=== PATIENT | female | born 1945 | race Caucasian/White ===

== ENCOUNTER 2023-09-01 07:30 | Outpatient (CLI) | payer MEDICARE, SELFPAY | END 2023-09-01 07:31 | disposition home or self-care (01) | LOC: NFLDREF 09-09 12:05 | PROVIDERS: PCP Internal Medicine; Referring Provider Internal Medicine; Visit Provider Internal Medicine | DX: E78.5 Hyperlipidemia, unspecified (principal); I10 Essential (primary) hypertension; E03.9 Hypothyroidism, unspecified | CPT/HCPCS: 80048; 80061; 84443 ==

== ENCOUNTER 2023-09-06 13:43 | Outpatient (CLI) | payer MEDICARE, SELFPAY | END 2023-09-06 13:44 | disposition home or self-care (01) | PROVIDERS: PCP Internal Medicine; Visit Provider Internal Medicine | DX: E78.5 Hyperlipidemia, unspecified (principal); E03.9 Hypothyroidism, unspecified; I10 Essential (primary) hypertension; M81.0 Age-related osteoporosis without current pathological fracture; D47.2 Monoclonal gammopathy | CPT/HCPCS: 82306; 84165; 86334 ==

== ENCOUNTER 2023-09-13 14:53 | Outpatient (CLI) | payer MEDICARE, SELFPAY ==
--- NOTE | 2023-09-13 15:00 | MM_ITS ---
Patient: EDER ANDERSON Facility:?[facility] Patient ID:?[id number] Site Patient ID:?[id number] Site :?[id number] Study:?XRay-Breast 3D w/ CAD-09/13/2023 4:03:48 PM Ordering Physician:[place] Final Report: BILATERAL SCREENING MAMMOGRAM WITH COMPUTER-AIDED DETECTION AND TOMOSYNTHESIS TECHNIQUE: CC and MLO views were obtained. These mammographic images have been obtained using full-field digital technique. These mammographic images were interpreted with the benefit of computer-aided detection. Breast Tomosynthesis was used in this interpretation. COMPARISON FILM: 06/21/22, 06/03/21. FINDINGS: The breasts are almost entirely fatty IMPRESSION: There is no radiographic evidence for malignancy. ASSESSMENT: BI-RADS Category 1: Negative RECOMMENDATION: Routine screening mammogram in 1 year. A lay language report of this examination will be provided to the patient. Ritesh Pollard M.D. Diagnostic Radiologist [email or web address] / be/Dictated by: Ritesh Pollard MD @ 09/20/2023 11:27:00 AM Signed by:?Ritesh Pollard MD @09/20/2023 4:21:06 PM (Electronic Signature)
== END 2023-09-13 14:54 | disposition home or self-care (01) ==
LOC: MAMMO 14:54
PROVIDERS: PCP Internal Medicine; Visit Provider Internal Medicine
DX: Z12.31 Encounter for screening mammogram for malignant neoplasm of breast (principal)
CPT/HCPCS: 77063; 77067

== ENCOUNTER 2024-04-16 14:49 | Emergency (ER) | payer MEDICARE, SELFPAY ==
[2024-04-16 14:53] VITALS: BP 157/96; PULSE 92; RESP 18; TEMP 36.9; O2SAT 94; BMI 23.7
--- NOTE | 2024-04-16 15:05 | ED.GENADULT ---
HPI - General Adult General Chief complaint: Abdominal Pain Stated complaint: Diverticulitis flare up Time Seen by Provider: 04/16/24 14:51 History of Present Illness HPI narrative: left sided abd pain with chills that started today. history of diverticulitis 78-year-old woman presenting to the emergency department with concern of abdominal pain. She has also had some chills today. She reports a history of diverticulitis with very similar symptoms. Just noticed more pain with some movement earlier today. No fever measured. No rashes. No injury. No dysuria or frequency. Does endorse a history of interstitial cystitis. No constipation or diarrhea or melena or hematochezia. Related Data Home Medications ?Medication ?Instructions ?Recorded ?Confirmed bupropion HCl 100 mg tablet,12 hr 100 mg PO BID 06/27/23 09/06/23 sustained-release dorzolamide-timolol (PF) 2 %-0.5 % 1 drp ophthalmic (eye) BID 06/27/23 09/06/23 eye drops in a dropperette latanoprost 0.005 % eye drops drp ophthalmic (eye) 06/27/23 09/06/23 levothyroxine 112 mcg tablet 112 mcg PO DAILY 06/27/23 09/06/23 (Synthroid) Previous Rx's ?Medication ?Instructions ?Recorded alendronate 70 mg tablet 70 mg PO QWEEK #12 tabs 09/06/23 valsartan 160 mg tablet 160 mg PO DAILY #90 tabs 09/06/23 rosuvastatin 20 mg tablet 20 mg PO QPM #90 tabs 11/25/23 oxycodone 5 mg tablet 5 mg PO Q6H #20 tabs 04/17/24 Allergies Allergy/AdvReac Type Severity Reaction Status Date / Time meperidine [From Demerol] Allergy Severe Chills Verified 09/06/23 13:33 hydrochlorothiazide Allergy Intermediate other Verified 09/06/23 13:33 sertraline [From Zoloft] Allergy Intermediate other Verified 09/06/23 13:33 ciprofloxacin [From Cipro] Allergy Mild Confusion Verified 09/06/23 13:33 Review of Systems Status of ROS: Reports: 6 or more systems reviewed and unremarkable except as noted in History and below PFS PFS Medical History History of diverticulitis ?Z87.19 - Personal history of other diseases of the digestive system (ICD-10) Surgical History History of lumbar surgery ?Z98.890 - Other specified postprocedural states (ICD-10) History of cataract surgery ?Z98.49 - Cataract extraction status, unspecified eye (ICD-10) Status post glaucoma surgery ?Z98.83 - Filtering (vitreous) bleb after glaucoma surgery status (ICD-10) Family History (Updated 09/01/23 @ 14:11 by Lulu Coronado) Sister Parathyroid tumor Congenital heart disease Mother High blood pressure High cholesterol TIA (transient ischemic attack) Myocardial infarction, Onset Age: 86 Father Pernicious anemia Social History What is your current living situation?: I presently have a place to live Problems where you live: no known problems In the past 12 months, utilities in danger of being shut off: no In past 12 months, lack of transportation kept you from medical appts, meetings, work, or getting things needed for daily living: no In the past 12 mos, have been you worried that your food would run out before you had money to buy more?: never true In the past 12 mos, the food you bought just didn't last and you didn't have money to buy more?: never true Smoking Status: Never smoker Do you use any of these nicotine containing products: None Second hand tobacco smoke exposure: No How often do you have a drink containing alcohol: never AUDIT-C Alcohol total score: 0 Non-prescribed substance use: denies use How often does anyone, including family, friends and others, physically hurt you: never How often does anyone, including family, friends and others, insult or talk down to you: never How often does anyone, including family, friends and others, threaten you with harm: never How often does anyone, including family, friends and others, scream or curse at you: never Little interest or pleasure in doing things: not at all Feeling down, depressed, or hopeless: not at all service: No Exam Narrative: Exam Narrative: Very pleasant. Good energy. Skin is warm and dry. Breathing easily. Heart in mildly elevated rate regular rhythm. Abdomen abdomen with present bowel sounds is soft without peritoneal signs. Reproducible discomfort in the left lower abdomen. Flank pain. Const: Vital Signs, click to edit/add: Vital Signs - 24 hr 04/16/24 14:53 Temperature 98.4 F Pulse Rate [Right Pulse Oximeter] 92 Respiratory Rate 18 Blood Pressure [Ri ght Upper Arm] 157/96 H Pulse Oximetry 94 Oxygen Delivery Me thod Room Air Documenting provider has reviewed patient's vital signs: yes Course Vital Signs Vital signs: Initial Vital Signs Temperature 98.4 F 04/16/24 14:53 Temperature Source Temporal Artery Scan 04/16/24 14:53 Pulse Rate 92 04/16/24 14:53 Respiratory Rate 18 04/16/24 14:53 Blood Pressure 157/96 H 04/16/24 14:53 Blood Pressure Mean 116 H 04/16/24 14:53 Blood Pressure Position Sitting 04/16/24 14:53 Pulse Oximetry 94 04/16/24 14:53 Oxygen Delivery Method Room Air 04/16/24 14:53 Vital Signs Temperature 98.4 F 04/16/24 14:53 Pulse Rate 92 04/16/24 14:53 Respiratory Rate 18 04/16/24 14:53 Blood Pressure 157/96 H 04/16/24 14:53 Pulse Oximetry 94 04/16/24 14:53 Oxygen Delivery Method Room Air 04/16/24 14:53 Temperature 98.4 F 04/16/24 14:53 Pulse Rate 92 04/16/24 14:53 Respiratory Rate 18 04/16/24 14:53 Blood Pressure 157/96 H 04/16/24 14:53 Pulse Oximetry 94 04/16/24 14:53 Oxygen Delivery Method Room Air 04/16/24 14:53 Medical Decision Making MDM Narrative Medical decision making narrative: Location and type of pain is consistent per her report of diverticular flare in the past. I did propose at least doing a urinalysis but she is not having any urinary tract symptoms; she is quite certain she does not have any issue here. I suppose there could be some mesenteric adenitis in differential as well. Considering mild symptoms and otherwise appears generally well with good vitals I do not think it is unreasonable to initiate treatment for diverticulitis as she proposes. Then monitor closely. She does present with an old bottle of what looks to be Augmentin. This is over a year old nearly 2. Reports intolerance to ciprofloxacin and metronidazole. See patient discharge plan for further discussion Medical Records Medical records reviewed: Yes I reviewed the patient's medical records Discharge Plan Discharge Clinical Impression: Abdominal pain, Diverticulitis Patient Disposition: Home, Self-Care Condition: Stable Additional Instructions: Clinically, it does seem like you might well have diverticulitis. Prescribing Augmentin as per your preference from [facility]. Focus on hydration. Consider a light diet over the next few days. Return for marked increase in persistent pain, fever, repeated vomiting. Prescriptions: No Action latanoprost 0.005 % drops ophthalmic (eye) levothyroxine [Synthroid] 112 mcg tablet 112 mcg PO DAILY bupropion HCl 100 mg tablet sustained-release 12 hr 100 mg PO BID dorzolamide-timolol (PF) 2-0.5 % dropperette 1 drp ophthalmic (eye) BID alendronate 70 mg tablet 70 mg PO QWEEK Qty: 12 3RF valsartan 160 mg tablet 160 mg PO DAILY Qty: 90 3RF rosuvastatin 20 mg tablet 20 mg PO QPM Qty: 90 2RF oxycodone 5 mg tablet 5 mg PO Q6H Qty: 20 0RF Follow Up/Referrals: Mackenzie Barajas MD [Primary Care Provider] - Stand Alone Forms: [employer] Info Instructions
--- OUTSIDE RECORDS SUMMARY | 2024-04-16 15:39 | XMS_ITS | Clinical Summary ---
Author Organization [facility] Address [place], [place] [address] Care Team Providers Care Mainframe Software Developer Name Role Phone Pcp, No Primary Care Provider Unavailabl e Allergies Active Allergy Reactions Criticality Noted Date Comments Ciprofloxacin Confusion,Other - Describe In Comment Field Low 12/26/2018 Dizziness Brain Fog Meperidine Other - Describe In Comment Field,Fever High 12/03/2009 shaking Chills, shaking Sertraline Diarrhea,Other - Describe In Comment Field High 01/07/2010 Electrolytes go out Burning while taking to swallow Medications Medication Sig Dispensed Refills Start Date End Date Status alendronate (FOSAMAX) 70 mg tablet TAKE 1 TABLET BY MOUTH ONCE A WEEK IN THE MORNING ON AN EMPTY STOMACH WITH FULL GLASS OF WATER DO NOT LIE DOWN FOR 1 HOUR Active buPROPion (WELLBUTRIN SR) 100 mg Sustained-Release tablet Take 100 mg by mouth two times daily. Active Synthroid 112 mcg tablet Take 112 mcg by mouth. BEFORE BREAKFAST Active rosuvastatin (CRESTOR) 20 mg tablet Take 20 mg by mouth at bedtime. Active valsartan (DIOVAN) 160 mg tablet Take 160 mg by mouth once daily. Active Social History Tobacco Use Types Packs/Day Years Used Date Smoking Tobacco: Never Smokeless Tobacco: Never Tobacco Cessation:Counseling Given: Not Answered Sex and Gender Information Value Date Recorded Sex Assigned at Not on file Gender Identity Not on file Sexual Orientation Not on file Obstetrics History Last Filed Vital Signs Vital Sign Reading Time Taken Comments Blood Pressure 154/87 10/18/2023 1:27 PM CDT Pulse 60 10/18/2023 1:02 PM CDT Temperature - - Respiratory Rate - - Oxygen Saturation 100% 10/18/2023 1:02 PM CDT Inhaled Oxygen Concentration - - Weight 76.7 kg (169 lb) 10/18/2023 1:02 PM CDT Height - - Body Mass Index - - Plan of Treatment Health Maintenance Due Date Last Done Comments Tdap 1957 Depression screening for age 12+ 1958 BMI (ht and wt on same day) for age 18+ 1964 Hepatitis C screening for ag e 18-79 1964 Tetanus booster 1966 Zoster (shingles) series for age 50+ (1 of 2) 1996 DEXA/DXA scan for age 65+ 2011 Medicare Wellness for age 65+ 2011 Pneumococcal series for age 65+ (1 of 1 - PCV) 2011 RSV vaccine for adults or (1 - 1-dose 75+ series) 2021 COVID-19 vaccine series (2023- season) 2024 04/01/2022, 11/03/2021, 04/06/2021, Additional history exists Influenza for age 65+ 03/11/2024 Care Teams Mainframe Software Developer Relationship Specialty Start Date End Date Pcp, No . PCP - General 07/14/23
== END 2024-04-16 15:41 | disposition home or self-care (01) ==
LOC: ED 15:37
PROVIDERS: Emergency Provider Family Medicine; PCP Internal Medicine
DX: K57.92 Diverticulitis of intestine, part unspecified, without perforation or abscess without bleeding (principal)
CPT/HCPCS: 99283; 99284

== ENCOUNTER 2024-05-02 09:00 | Outpatient (RCR) | payer MEDICARE, SELFPAY ==
--- NOTE | 2024-02-15 13:21 | PT.OPEX ---
PT [place] Outpatient Eval PT [facility] Outpatient Eval Start: 02/15/24 07:40 Freq: Status: Active Protocol: Document 02/15/24 07:40 ENM (Rec: 02/15/24 09:00 ENM [id number]) E-signed By Bridget Brooke, DPT Physical Therapy Outpatient Evaluation Insurance Information Recert Due Date 05/15/24 Insurance Name Medicare B Medical Diagnosis strain of other muscles, fascia and tendons at shoulder and upper arm level, right arm, initial encounter Treating Diagnosis neck pain, shoulder pain, decreased shoulder ROM, decreased neck ROM, impaired posture, decreased shoulder and scapular strength Referring MD Barajas Subjective Preferred Name Heather Aleman Patient presents to PT for complaint of neck pain and shoulder pain. It feels like a big knot back in the shoulder . It has been an ongoing issue since the start of the pandemic. She is getting tired of the pain. Everything in her shoulder seems to be inflamed. The pain comes and goes and moves around. The shoulder also feels stiff and doesn't have the range of motion that she would like. She does reformer pilates and that helped some in the past. She has been babying the shoulder recently. Her right shoulder blade does poke out just when laying on it. When it started: 5-6 years Describes it as: aching, tightness Timing: varies Location: varies Irritability: mild Severity: mild-mod PMHx: HTN, osteoporosis Pain Comments at its best: 2/10 at its worse: 10/10 in the middle of the night easing: tylenol aggravating: lifting, opening a door, reaching across the body Current Work Status Retired Objective Other/Pertinent Objective Cervical AROM: cervical flexion: 24 extension: 33 with pulling on R side SB: L 14 stuck and painful R 26 pinching on R side Rot: L 60 R 55 tight and hurts Shoulder AROM: Flexion: L 142 R 136 aching top of shoulder (less pain with passive motion) Abduction: L 166 R 155 IR: L T7 R T9 + for pain ER: L 4 fingertips from table R 5 fingertips from table Strength: shoulder flexion: L 4+/5 R 4-/ 5 with pain shoulder abduction: L 4/5 R 4/ 5 shoulder IR: L 5/5 R 4+/5 shoulder ER: L 4+/5 R 3+/5 middle trapezius L 4-/5 R 3+/5 slight pain Palpation/joint mobility: posterior glide of GHJ limited on R compared to L inferior glide of GHJ normal mobility B + for pain palpation of R UT, R levator, biceps tendon, infraspinatus and teres musculature Special tests scapular assistance improves pain Carrera Gigi - neers + on R Posture: protracted shoulders, patients right shoulder rests with medial border winging Assessment Assessment/Impression Patient is a 78 year old female presenting with an acute case of chronic right shoulder pain. Their primary complaint is of constant right shoulder pain that increases with lifting and reaching overhead or across the body. They stay active with reformer pilates but had to stop this recently due to shoulder pains . Upon assessment patients concordant pains brought on with active shoulder motion, resistance testing of the shoulder, neers testing and palpation of right biceps tendon, posterior rotator cuff , levator as well as UT. Significant weakness is present with MMT of shoulder external rotators as well as middle trap. Patient rests with winging of the medial border of her scapula and does endorse a reduction in pain with AROM when she has scapular assistance. Symptoms seem muscular in nature likely strain and impingement due to mechanics of her shoulder/ scapula. Sarah would greatly benefit from skilled PT to address impairments stated above in order to perform all functional mobility, self cares/ADLs and recreational activities without significant discomfort or difficulty. Primary Functional Limitations reaching up or across the body , lifting, opening a door Plan of Care Rehabilitation Potential Good Rehabilitation Potential Comments fair-good due to chronic nature of symptoms Physical Therapy Goals In 8-10 visits: 1. Patient will be IND with HEP and self management of symptoms 2. Patient will display pain free active right shoulder flexion to at least 140 degs to comfortably perform self cares/ADLs 3. Patient will be able to open a door without difficulty 4. Patient will improve scapular and shoulder external rotation strength to at least 4-/5 to better support her shoulder with pilates 5. Patient will make it through the night with 4/10 or less shoulder/neck pain for improved sleep hygiene Coordination/Communication With Referral Source Treatment Plan/Direct Interventions Electrical Stimulation,Heat, Ice/Cold/Vasopneumatic,Joint Mobilization,Manual Therapy, Neuromuscular Re-ed,Self-Care/ Home Management,Therapeutic Activities,Therapeutic Exercises,Traction (Mechanical ) Frequency/Duration 1x a week for 8-10 visits Patient Will Be Discharged From Therapy Completion of LTG(s), Independent w/HEP Evaluation Billing Untimed Code Treatment Minutes 34 Complexity Low Certification Information Initial Certification Date 02/15/24 Ending Certification Date 05/15/24 Provider Signature Required Yes Provider Signature Shows Agreement With POC & Medical Necessity Physician NPI Number Write NPI# Here Physician Comment/Change : Physician Signature & Date Requested Please Sign/Date Here
--- NOTE | 2024-05-02 10:47 | PT.OPDNX ---
PT [facility] Daily Note PT [facility] Outpatient Daily Note Start: 02/15/24 07:40 Freq: Status: Active Protocol: Document 05/02/24 07:58 ENM (Rec: 05/02/24 09:46 ENM [id number]) E-signed By Bridget Brooke DPT PT [facility] Daily Progress Note Visit Information Note Type Recert/Progress Note Visit Number [id number] Insurance Information Recert Due Date 07/31/24 Insurance Name Medicare B Medical Diagnosis strain of other muscles, fascia and tendons at shoulder and upper arm level, right arm, initial encounter Treating Diagnosis neck pain, shoulder pain, decreased shoulder ROM, decreased neck ROM, impaired posture, decreased shoulder and scapular strength Referring MD Barajas Subjective Preferred Name Heather Subjective She has been sick but still did her exercises. She is feeling almost 100% better but with some soreness still with shoulder abduction. Pain Comments at its worse 08/20 Precautions Treatment Precautions/Contraindications PMHx: HTN, osteoporosis Home Exercise Home Exercise Comments Access Code: [email or web address] URL: [email or web address] Date: 05/02/2024 Prepared by: Bridget Brooke Exercises - Standing Bilateral Low Shoulder Row with Anchored Resistance - 1 x daily - 5 x weekly - 3 sets - 10 reps - 5s hold - Supine Shoulder Alphabet - 1 x daily - 5 x weekly - 1 reps - Wall Push Up with Plus - 1 x daily - 5 x weekly - 2-3 sets - 8 reps - Sidelying Shoulder External Rotation - 1 x daily - 5 x weekly - 2-3 sets - 8 reps - 3 -5 seconds hold - Standing Shoulder Scaption - 1 x daily - 5-7 x weekly - 2 -3 sets - 8-10 reps - Standing Bicep Curls Supinated with Dumbbells - 1 x daily - 5 x weekly - 3 sets - 8 reps - Standing Bent Over Triceps Extension - 1 x daily - 5 x weekly - 3 sets - 8 reps Objective Other/Pertinent Objective Shoulder AROM: Flexion: L 135 R 139 Abduction: L 161 R 151 slight discomfort IR: L T7 R T9 Strength: shoulder flexion: L 4+/5 R 4-/ 5 with pain shoulder abduction: L 4/5 R 4/ 5 shoulder IR: L 5/5 R 4+/5 shoulder ER: L 4+/5 R 4-/5 Patient Instructed in Risks/Benefits Yes Therapeutic Exercise Therapeutic Exercise Minutes (minutes) 39 Therapeutic Exercise: To Restore -UBE level 3 resistance 50% x5 Functional Status mins total (2.5 fwd and backward) -towel slide up wall flexion 1x10, wall samish 1x10 -standing scaption AROM 2x10 -standing 2# bicep curls 2x8 B -Sidelying R sh. ER without resistance 3x7 with fatigue -GTB scapular rows 3x10 -bent over tricep ext at counter 3x7 Treatment Minutes Timed Code Treatment Minutes 39 Total Treatment Time 39 Billing Units Therapeutic Exercise Units 3 Assessment/Impression Assessment/Impression Pains at upper trapesiuz have gone away and she is feeling almost 100%. She still feels some soreness in lateral shoulder with abduction but the intensity has subsided. Continued to progress reps and sets of exercises today which patient is tolerating better now. Shoulder does fatigue by end of session but it is no longer painful. Plan is for patient to work on strengthening at home x2-3 weeks then return to clinic for reassessment. Anticipate 2 more visits before d/c as Heather has met almost all goals for PT to date. Plan of Care Physical Therapy Goals In 8-10 visits: 1. Patient will be IND with HEP and self management of symptoms MET 2. Patient will display pain free active right shoulder flexion to at least 140 degs to comfortably perform self cares/ADLs MET 3. Patient will be able to open a door without difficulty MET 4. Patient will improve scapular and shoulder external rotation strength to at least 4-/5 to better support her shoulder with pilates 5. Patient will make it through the night with 4/10 or less shoulder/neck pain for improved sleep hygiene MET Daily Plan of Care Continue per POC Daily Plan of Care Comments Plan: MT PRN progress shoulder ROM scapular strengthening Recertification Information Initial Certification Date 02/15/24 Recertification Start Date 05/02/24 Recertification Due Date 07/31/24 Reasons to Continue Skilled Therapy Sarah continues to benefit from skilled PT to further progress shoulder and scapular strength to decrease risk of reoccurrence of symptoms. Rehabilitation Potential good Continued Plan of Care and Interventions 3-4 visits every other week Provider Signature Shows Agreement With POC & Medical Necessity Physician Comment/Change Comment or Changes Physician NPI Number #
== END 2024-08-30 23:59 | disposition home or self-care (01) ==
PROVIDERS: PCP Internal Medicine; Visit Provider Internal Medicine
DX: S46.811A Strain of other muscles, fascia and tendons at shoulder and upper arm level, right arm, initial encounter (principal); M54.2 Cervicalgia; M25.511 Pain in right shoulder; Z74.09 Other reduced mobility; R29.3 Abnormal posture; R53.1 Weakness; Z51.89 Encounter for other specified aftercare
CPT/HCPCS: 97110; 97140; 97161

== ENCOUNTER 2024-09-05 07:35 | Outpatient (CLI) | payer MEDICARE, SELFPAY | END 2024-09-05 07:36 | disposition home or self-care (01) | LOC: NFLDREF 09-06 08:53 | PROVIDERS: PCP Internal Medicine; Referring Provider Internal Medicine; Visit Provider Internal Medicine | DX: M81.0 Age-related osteoporosis without current pathological fracture (principal); D47.2 Monoclonal gammopathy; E78.5 Hyperlipidemia, unspecified; E03.9 Hypothyroidism, unspecified; I10 Essential (primary) hypertension | CPT/HCPCS: 80048; 80061; 82306; 84165; 84443 ==

== ENCOUNTER 2024-10-29 08:31 | Outpatient (CLI) | payer MEDICARE, SELFPAY ==
--- NOTE | 2024-10-29 08:45 | CRLHL7_ITS ---
For Patients: As a result of the Century Cures Act, medical imaging exams and procedure reports are released immediately into your electronic medical record. You may view this report before your referring provider. If you have questions, please contact your health care provider. INDICATION: BILATERAL SCREENING MAMMOGRAM, ASYMPTOMATIC 79 Y/O FEMALE COMPARISON: 09/13/23, 06/21/22, 06/03/21 TECHNIQUE: CC and MLO views were obtained. These mammographic images have been obtained using full-field digital technique. These mammographic images were interpreted with the benefit of computer aided detection and tomosynthesis. BREAST COMPOSITION: The breasts are almost entirely fatty. FINDINGS: No suspicious findings. ASSESSMENT: BI-RADS 1 Negative RECOMMENDATION: Annual screening mammogram. A lay language report of this examination will be provided to the patient. Dictated by: Ritesh Pollard MD @ 10/30/2024 11:18:10 (Electronically Signed)
== END 2024-10-29 08:32 | disposition home or self-care (01) ==
LOC: MAMMO 08:31
PROVIDERS: PCP Internal Medicine; Visit Provider Internal Medicine
DX: Z12.31 Encounter for screening mammogram for malignant neoplasm of breast (principal)
CPT/HCPCS: 77063; 77067

== ENCOUNTER 2024-12-22 11:38 | Observation (INO) | payer MEDICARE, SELFPAY ==
--- OUTSIDE RECORDS SUMMARY | 2022-10-01 04:30 | XMS_ITS | Continuity of Care Document ---
Author Organization [facility] Address [address] [place] [address] Phone Care Team Providers Care Vault Clerk Name Role Phone Germain Perez MD Unavailable Unavailable Allergies, Adverse Reactions, Alerts Substance Reaction Status Criticality CIPROFLOXACIN HCL Active No Informa tion ciprofloxacin Active No Information SERTRALINE HCL Active No Informatio n hydrochlorothiazide Active No Infor mation MEPERIDINE HCL Active No Informatio n Medications Medication Instructions Dosage Effective Dates (start - stop) Status Comments SYNTHROID (unknown strength) Not Available - Active Procedures Procedure Date Postop followup visit X-ray exam of finger(s),2+ views 2022 Postop followup visit Tendon sheath incision, finger Removal of palm tendon, each Office[facility]outpatient visit,[facility] 2022 Advance Directives Directive Yes / No Effective Date File Name No Information Encounters Encounter Description Practice Location Reason(s) For Visit Diagnoses Date Provider Providers Copied on Encounter [facility], [address] [facility] [place], [address], [place] tel:[phone] [place] Haley Trigger finger, right ring finger Ana Groves. [address] [facility] [place] [id number] [place]. tel:[phone] Referring Provider: [place], [address] . tel:[phone] [facility], [address], [place], [place], [facility], tel:[phone] [place] Haley Trigger finger, right ring finger Adina Johns. [address] [place], [facility], [place]. tel:[phone] Referring Provider: Genoveva Dudley [address] [place], [address] . tel:[phone] [facility], [address] [place], [facility], tel:[phone] [place] Diet[place] Haley Trigger finger, right ring finger Ana Groves. [address] [place], [id number] , [place]. [phone] Referring Provider: Genoveva Dudley [address] [facility] [place], [address] . tel:[phone] Office/outpat ient visit,[facility], [address] [place], [facility], tel:[phone] [place] Dietrich Haley None (chief complaint) Trigger finger, right ring finger Ana Groves. [address] [place] Jar[place]andree [place], [id number] , [place]. [phone] Referring Provider: Genoveva Dudley [address] [place], [address] . tel:[phone] Family History Family Member Type Diagnosis Age At Onset Father Problem (finding) Family history of Glauc jose Mother Problem (finding) Family history of Hyper lipidemia Mother Problem (finding) Hypertension Mother Problem (finding) Thyroid disorder Payers Payer name Insurance type Covered green party ID Authoriza tion(s) Medicare [place] [id number] AARP Supplemental CI [id number] Social History Type Description Quantity Date Captured Comments Sex Female Smoking Status No Information Chief Complaint And Reason For Visit No Information Reason For Referral Reason For Referral No Information History Of Present Illness Encounter Date Complaint History Of Prese nt Illness None Functional Status Date Functional Assessmen t No Information Instructions Date Instruction Additional Infor mation No Information Assessments Type Assessment Date No Information Patient Care Teams Name Effective Dates (start - stop) Status Members No Information
--- OUTSIDE RECORDS SUMMARY | 2022-10-01 04:30 | XMS_ITS | Continuity of Care Document ---
Author Organization [facility] Address [address] [place] [address] Phone Care Team Providers Care Radio Television Technical Director Name Role Phone Germain Perez MD Unavailable [...] finger Removal of palm tendon, each Office/outpatient visit,[facility] 2022 Advance Directives Directive Yes / No Effective Date File Name No Information Encounters Encounter Description Practice Location Reason(s) For Visit Diagnoses Date Provider Providers Copied on Encounter [facility] [place], [address] [facility] [place], [address], [place] tel:[phone] [place] Haley Trigger finger, right ring finger Ana Groves. [address] [place], [id number] , [place]. tel:[phone] Referring Provider: [place], [address] . tel:[phone] [facility], [address], [place], [place], [facility], tel:[phone] [place] H[place] Trigger finger, right ring finger Adina Johns. [address] [place], [place], [facility], [place]. tel:[phone] Referring Provider: Genoveva Dudley [address] [place], [address] . tel:[phone] [facility], [address], [facility], tel:[phone] [place] H[place] Trigger finger, right ring finger Ana Groves. [address] [place], [id number] , [place]. [phone] Referring Provider: Genoveva Dudley [address] [place], [address] . tel:[phone] Office/outpat ient visit,[facility], [address] [place], [place], [facility], tel:[phone] [place] Haley None (chief complaint) Trigger finger, right ring finger Ana Groves. [address] Jarodandree [place], [id number] , [place]. [phone] Referring Provider: Genoveva Dudley [address] [place], [address] . tel:[phone] Family History Family Member Type Diagnosis Age At Onset Father Problem (finding) Family history of Glauc jose Mother Problem (finding) Family history of Hyper lipidemia Mother Problem (finding) Hypertension Mother Problem (finding) Thyroid disorder Payers Payer name Insurance type Covered libertarian ID Authoriza tion(s) Medicare [place] [id number] AARP Supplemental [place] [id number] Social History Type Description Quantity Date Captured [...]
--- OUTSIDE RECORDS SUMMARY | 2023-11-02 11:06 | XMS_ITS | Continuity of Care Document ---
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 Supervisor Name Role Phone Susan SMALL, Christi Unavailable Unavailable Allergies, Adverse Reactions, Alerts Substance Reaction Status Criticality NITROFURANTOIN MACROCRYSTALLINE Dizziness(severe) Acti ve No Information nitrofurantoin Dizziness(severe) Active No Infor mation hydrochlorothiazide Unknown(unknown) Active No I nformation SERTRALINE HCL Unknown(unknown) Active No Inform ation MEPERIDINE HCL freezing cold, dizzy(moderate) Active No Information Medications Medication Instructions Dosage Effective Dates (start - stop) Status Comments latanoprost 0.005 % eye drops instill 1 drop by ophthalmic route every day in the left eye 1 drop - Active Cosopt (PF) 2 %-0.5 % eye drops in a dropperette INSTILL ONE DROP TO THE LEFT EYE TWICE A DAY - Active PA- Approved Benadryl 25 mg capsule take 2 capsule by oral route every 4 - 6 hours as needed 50 MG - Active Wellbutrin XL 150 mg 24 hr tablet, extended release take 1 tablet by oral route every day 150 MG - Active Augmentin 875 mg-125 mg tablet take 1 tablet by oral route every 12 hours for 10 days - Active valsartan 160 mg tablet take 1 tablet by oral route every day 160 MG - Active Vitamin D3 2,000 unit tablet take 1 tablet by oral route every day 1 tablet - Active alendronate 70 mg tablet take 1 tablet by oral route every week in the morning, at least 30 min before first food, beverage, or medication of day 70 MG - Active Synthroid 100 mcg tablet take 1 tablet by oral route every day 100 MCG - Active Procedures Procedure Date Visual Field Examination W I And R Exten ded Uni Or Bi Gonioscopy Bilateral OFFICE/OUTPATIENT VISIT, EST, Low Ophthal DX Image Post Retina I And R Uni Or Bi OFFICE/OUTPATIENT VISIT, EST, Moderate J OFFICE/OUTPATIENT VISIT, EST, Low Visual Field Examination W I And R Exten ded Uni Or Bi OFFICE/OUTPATIENT VISIT, EST, Moderate M OFFICE/OUTPATIENT VISIT, EST, Moderate S OFFICE/OUTPATIENT VISIT, EST, Low Ophthal DX Image Post Retina I And R Uni Or Bi Post Op Follow Up Visit Contact Lens Follow Up Discission Of Secondary Membranous Catar act Yag 1 Or More Stages Discission Of Secondary Membranous Catar act Yag 1 Or More Stages Visual Field Examination W I And R Exten ded Uni Or Bi Ophthal DX Imag Posterior Seg I And R Un i Or Bi Eye Exam Established Patient Comprehensi ve 1 Or More Visits OFFICE/OUTPATIENT VISIT, EST OFFICE/OUTPATIENT VISIT, EST Ophthal DX Imag Posterior Seg I And R Un i Or Bi Visual Field Examination W I And R Exten ded Uni Or Bi Eye Exam Established Patient Comprehensi ve 1 Or More Visits OFFICE/OUTPATIENT VISIT, EST Visual Field Examination W I And R Exten ded Uni Or Bi OFFICE/OUTPATIENT VISIT, EST GLAUCOMA PLAN OF CARE DOCD IOP DOWN <15% OF PRE-SVC LVL OFFICE/OUTPATIENT VISIT, EST Ophthal DX Image Post Retina I And R Uni Or Bi GLAUCOMA PLAN OF CARE DOCD IOP DOWN <15% OF PRE-SVC LVL OFFICE/OUTPATIENT VISIT, EST GLAUCOMA PLAN OF CARE DOCD IOP DOWN <15% OF PRE-SVC LVL OFFICE/OUTPATIENT VISIT, EST Gonioscopy Bilateral Visual Field Examination W I And R Exten ded Uni Or Bi GLAUCOMA PLAN OF CARE DOCD IOP DOWN <15% OF PRE-SVC LVL OFFICE/OUTPATIENT VISIT, EST Visual Field Examination W I And R Exten ded Uni Or Bi GLAUCOMA PLAN OF CARE DOCD IOP DOWN <15% OF PRE-SVC LVL Post Op Follow Up Visit Post Op Follow Up Visit Post Op Follow Up Visit Post Op Visit Cataract Post Op Follow Up Visit INSERT ANT SEGMENT DRAIN INT I Stent Oct CATARACT SURG W/IOL, 1 STAGE Pt Documented Not To Have Experienced Ap r Pt W/O Preop Order IV Insert Anterior Seg Aqueous Drainage Dev ice ,IStent Initial Insertion CATARACT SURG W/IOL, 1 STAGE OFFICE/OUTPATIENT VISIT, EST Visual Field Examination W I And R Exten ded Uni Or Bi GLAUCOMA PLAN OF CARE DOCD IOP DOWN <15% OF PRE-SVC LVL Eye Exam Established Patient Comprehensi ve 1 Or More Visits Gonioscopy Ophthalmic Biometry W Iol Calculation Te ch Comp Unilateral Ophthalmic Biometry W Iol Calculation Pr of Comp Unilateral Post Op Follow Up Visit OPTIC NERVE HEAD EVAL DONE IOP DOWN Greater Than 15 Percent OF PRES VC LVL Post Op Follow Up Visit OPTIC NERVE HEAD EVAL DONE IOP DOWN Greater Than 15 Percent OF PRES VC LVL OFFICE/OUTPATIENT VISIT, EST OPTIC NERVE HEAD EVAL DONE IOP DOWN Greater Than 15 Percent OF PRES VC LVL Post Op Follow Up Visit OPTIC NERVE HEAD EVAL DONE IOP DOWN Greater Than 15 Percent OF PRES VC LVL Post Op Follow Up Visit OPTIC NERVE HEAD EVAL DONE IOP DOWN Greater Than 15 Percent OF PRES VC LVL Post Op Follow Up Visit OPTIC NERVE HEAD EVAL DONE IOP DOWN Greater Than 15 Percent OF PRES VC LVL Post Op Visit Cataract Post Op Follow Up Visit OPTIC NERVE HEAD EVAL DONE IOP DOWN Greater Than 15 Percent OF PRES VC LVL Post Op Follow Up Visit SPECIAL SUPPLIES OPTIC NERVE HEAD EVAL DONE IOP DOWN Greater Than 15 Percent OF PRES VC LVL Fitting Of CT Lens For Trt Of Ocular Luke face Dis Post Op Follow Up Visit OPTIC NERVE HEAD EVAL DONE IOP DOWN Greater Than 15 Percent OF PRES VC LVL OFFICE/OUTPATIENT VISIT, EST Post Op Follow Up Visit Trabeculotomy Ab Externo CATARACT SURG W/IOL, 1 STAGE Post Op Follow Up Visit OPTIC NERVE HEAD EVAL DONE IOP DOWN Greater Than 15 Percent OF PRES VC LVL Post Op Follow Up Visit OPTIC NERVE HEAD EVAL DONE IOP DOWN Greater Than 15 Percent OF PRES VC LVL Post Op Follow Up Visit Trabeculotomy Ab Externo CATARACT SURG W/IOL, 1 STAGE Fistulization Of Sclera, Trabeculectomy Ab Externo CATARACT SURG W/IOL, 1 STAGE GLAUCOMA SURGERY CATARACT SURG W/IOL, 1 STAGE Pt Documented Not To Have Experienced Ju Pt W/O Preop Order IV Advance Directives Directive Yes / No Effective Date File Name No Information Encounters Encounter Description Practice Location Reason(s) For Visit Diagnoses Date Provider Providers Copied on Encounter [facility], [address] [place], [place], [facility], [place] tel:[phone] [facility] No Information 4 Susan Barraza. [address] [place], [place], [id number]. tel:[phone] [facility], [address] [place], [place], [facility], [place] tel:[phone] [facility] No Information 3 Corporate Doctor. [address] [place], [place], [id number], [place]. tel:[phone] [facility], [address] [place], [place], [facility], tel:[phone] [facility] No Information 3 Susan Barraza. [address] [place], [place], [id number]. tel:[phone] OFFICE/OUTPA TIENT VISIT, EST, Low [facility], [address] [place], [place], [facility], [place] [phone] [facility] glaucoma f/u (chief complaint) Optic nerve hemorrhage, leftKeratoconju nctivitis sicca of both eyes not specified as Sjogren'sHypoto ny of right eye due to ocular fistulaUnspecif ied amblyopia, right eyePrimary open angle glaucoma (POAG) of both eyes, severe stage 3 Susan Barraza. [address] [place], [place], [id number]. tel:[phone] Referring Provider: Christi Bolanos, [address] [place], [address]. tel:[phone] OFFICE/OUTPA TIENT VISIT, EST, Moderate [facility], [address] [place], [place], [facility], [place] tel:[phone] [facility] Glaucoma, 6 month followup (chief complaint) Primary open-angle glaucoma, right eye, severe stagePrimary open-angle glaucoma, left eye, moderate stageKeratoconj unctivitis sicca of both eyes not specified as Sjogren'sUnspec ified amblyopia, right eyeEpiretinal membrane (ERM) of right eye 3 [place]. [address] [place], [place], [id number]. tel:[phone] Other Provider: Bautista Salmon, [address] [place] [address], [address]. tel:[phone] keen Provider: No Ref Doc No Referring Doc. OFFICE/OUTPA TIENT VISIT, EST, Low [facility], [address] [place], [place], [facility], [place] tel:[phone] [facility] Glaucoma 3mo f/u (chief complaint) Primary open-angle glaucoma, right eye, severe stagePrimary open-angle glaucoma, left eye, moderate stageKeratoconj unctivitis sicca of both eyes not specified as Sjogren'sUnspec ified amblyopia, right eye 2 [place]. [address] [place], [place], [id number]. tel:[phone] Referring Provider: No Ref Doc No Referring Doc. OFFICE/OUTPA TIENT VISIT, EST, Moderate [facility], [address] [place], [facility], [place] tel:[phone] [facility] glaucoma follow up (chief complaint) Primary open-angle glaucoma, right eye, severe stagePrimary open-angle glaucoma, left eye, moderate stageUnspecifie d amblyopia, right eyeHypotony of right eye due to ocular fistulaOptic nerve hemorrhage, left Sep- 2 [place]. [address] [place], [place], [id number]. tel:[phone] Other Provider: Bautista Salmon, [address] [place] [address], [place], [address]. tel:[phone] ng Provider: No Ref Doc No Referring Doc. OFFICE/OUTPA TIENT VISIT, EST, Moderate [facility], [address] [place], [address], tel:[phone] [facility] Glaucoma f/u (chief complaint) Primary open-angle glaucoma, right eye, severe stagePrimary open-angle glaucoma, left eye, mild stagePresence of intraocular lensKeratoconju nctivitis sicca of both eyes not specified as Sjogren's Sep- 0 1 Javier Chase. [address] [place], [place], [id number]. tel:[phone] Other Provider: Bautista Salmon, [address] [place] [address], [facility]. tel:[phone] Provider: No Ref Doc No Referring Doc. OFFICE/OUTPA TIENT VISIT, EST, Low [facility], [address] [place], [facility], tel:[phone] [facility] 5 mo glaucoma f/u OU (chief complaint) Primary open-angle glaucoma, right eye, severe stagePrimary open-angle glaucoma, left eye, moderate stageHypotony of right eye due to ocular fistula Oct- 1 Susan Barraza. [address] [place], [place], [id number]. tel:[phone] Referring Provider: No Ref Doc No Referring Doc. [facility], [address] [place], [facility], [place] tel:[phone] [facility] 3 wk YAG PC PO (chief complaint) Secondary cataract of left eye, unspecified secondary cataract typePrimary open-angle glaucoma, right eye, severe stagePrimary open-angle glaucoma, left eye, mild stageHypotony of right eye due to ocular fistulaPresence of intraocular lens 0 Javier Chase. [address] [place], [place], [id number]. tel:[phone] Referring Provider: Rena Gottlieb, [address] [place], [address]. tel:[phone] [facility], [address] [place], [address], [place] tel:[phone] [facility] Encntr for surgical aftcr fol surgery on the sense organs Oct-2 0 Susan Barraza. [address] [place], [place], [id number]. tel:[phone] Referring Provider: Christi Bolanos, [address] [place], [address]. tel:[phone] [facility], [address] [place], [place], [facility], tel:[phone] [facility] [place] Other secondary cataract, left eye Oct-2 0 [facility] [place]. [address] [place], [place], [id number], [place]. tel:[phone] Referring Provider: Christi Bolanos, [address] [place], [address]. tel:[phone] [facility], [address] [place], [address], [place] tel:[phone] [facility] [place] Other secondary cataract, left eye Oct-2 0 Susan Barraza. [address] [place], [place], [id number]. tel:[phone] Referring Provider: Christi Bolanos, [address] [place], [address]. tel:[phone] [facility], [address] [place], [address], [place] tel:[phone] [facility] 4 mo glaucoma f/u OU (chief complaint) Secondary cataract of left eye, unspecified secondary cataract typePrimary open-angle glaucoma, right eye, severe stagePrimary open-angle glaucoma, left eye, moderate stageHypotony of right eye due to ocular fistulaUnspecif ied amblyopia, right eyePresence of intraocular lens Oct-0 0 Susan Barraza. [address] [place], [place], [id number]. tel:[phone] Referring Provider: Christi Bolanos, [address] [place], [address]. tel:[phone] OFFICE/OUTPA TIENT VISIT, EST [facility], [address] [place], [address], [place] [phone] [facility] 7 month glaucoma follow up (chief complaint) Primary open-angle glaucoma, right eye, severe stagePrimary open-angle glaucoma, left eye, moderate stagePresence of intraocular lens May- 0 Susan Barraza. [facility] [place], [place], [id number]. tel:[phone] Referring Provider: Christi Bolanos, [address] [place], [address]. tel:[phone] OFFICE/OUTPA TIENT VISIT, EST [facility], [address] [place], [address], [place] [phone] [facility] [place] 1-2 month glaucoma follow up (chief complaint) Primary open-angle glaucoma, right eye, severe stagePrimary open-angle glaucoma, left eye, moderate stageHypotony of right eye due to ocular fistulaCorneal edema of right eyeOther corneal scars and opacitiesPtosis of eyelid, right Nov-201 9 Susan Barraza. [address] [place], [place], [id number]. tel:[phone] Referring Provider: Christi Bolanos, [address] [place], [address]. tel:[phone] [facility], [address] [place], [address], [place] tel:[phone] [facility] Primary open-angle glaucoma, right eye, severe stagePrimary open-angle glaucoma, left eye, moderate stage Sep-2 -201 9 Susan Barraza. [address] [place], [place], [id number]. tel:[phone] Referring Provider: No Ref Doc No Referring Doc. [facility], [address] [place], [address], [place] tel:[phone] [facility] [place] 4 month glaucoma exam (chief complaint) Primary open-angle glaucoma, right eye, severe stagePrimary open-angle glaucoma, left eye, moderate stageEpiretinal membrane (ERM) of right eyeCorneal edema of right eyeOther corneal scars and opacitiesPtosis of eyelid, rightPresence of intraocular lens Mar- 9 Susan Barraza. [address] [place], [place], [id number]. tel:[phone] Referring Provider: Christi Bolanos, [address] [place], [address]. tel:[phone] OFFICE/OUTPA TIENT VISIT, EST [facility] Phys[facility], [address] [place], [address], [place] tel:[phone] [facility] [place] 3 month glaucoma follow up (chief complaint) Primary open-angle glaucoma, right eye, severe stagePrimary open-angle glaucoma, left eye, moderate stageOther corneal scars and opacitiesPtosis of eyelid, rightPresence of intraocular lensCorneal edema of right eye 9 Susan Barraza. [address] [place], [place], [id number]. tel:[phone] Other Provider: Bautista Salmon, [address] [facility], [place], [address]. tel:[phone] Provider: Malcolm Boateng, [address] [place], [address]. tel:[phone] OFFICE/OUTPA TIENT VISIT, EST [facility] Physician [facility], [address] [place], [address], [place] tel:[phone] [facility] IOP Glaucoma CK (chief complaint) Primary open-angle glaucoma, right eye, severe stagePrimary open-angle glaucoma, left eye, moderate stageHypotony of right eye due to ocular fistula Sep- 9 Susan Barraza. [address] [place], [place], [id number]. tel:[phone] Referring Provider: Malcolm Boateng, [address] [place] [address], [address]. tel:[phone] OFFICE/OUTPA TIENT VISIT, EST [facility], [address] [place], [address], [place] [phone] [facility] [place] 3 month glaucoma follow up (chief complaint) Primary open-angle glaucoma, right eye, severe stagePrimary open-angle glaucoma, left eye, moderate stageHypotony of right eye due to ocular fistulaUnspecif ied amblyopia, right eyePresence of intraocular lensSecondary cataract of left eye, unspecified secondary cataract typeEpiretinal membrane (ERM) of right eye 9 Susan Barraza. [address] [place], [place], [id number]. tel:[phone] Referring Provider: Malcolm Boateng, [address] [place] [address], [address]. tel:[phone] OFFICE/OUTPA TIENT VISIT, EST [facility], [address] [place], [address], [place] [phone] CAYETANOIsiah Tariq overdue glaucoma follow up (chief complaint) Primary open-angle glaucoma, right eye, severe stagePrimary open-angle glaucoma, left eye, moderate stageUnspecifie d amblyopia, right eyeHypotony of right eye due to ocular fistula Apr- 8 [place]. [address] [place], [place], [id number]. tel:[phone] Other Provider: Bautista Salmon, [address] [place], [address]. tel:[phone] ng Provider: Malcolm Boateng, [address] [place] [address], [address]. tel:[phone] OFFICE/OUTPA TIENT VISIT, EST [facility], [address] [place], [address], [place] [phone] [facility] goino/follo w up/HVF (chief complaint) Primary open-angle glaucoma, right eye, severe stagePrimary open-angle glaucoma, left eye, moderate stageAge-relate d nuclear cataract, left eyeUnspecified amblyopia, right eyeBlepharitis of upper and lower eyelids of both eyes, unspecified typeUnspecified blepharitis right lower eyelidUnspecifi ed blepharitis left upper eyelidUnspecifi ed blepharitis left lower eyelid 8 [place]. [address] [place], [place], [id number]. tel:[phone] Referring Provider: Malcolm Boateng, [address] [place] [address], [address]. tel:[phone] OFFICE/OUTPA TIENT VISIT, EST [facility] Physician s, [address] [place], [address], [place] tel:[phone] [facility] 6 month dilated exam and HVF (chief complaint) Primary open-angle glaucoma, right eye, severe stagePrimary open-angle glaucoma, left eye, moderate stageOther corneal scars and opacitiesPresen ce of intraocular lensUnspecified amblyopia, right eyeBlepharitis of upper and lower eyelids of both eyes, unspecified type 8 Grecarlitos Barraza. [address] [place], [place], [id number]. tel:[phone] Other Provider: Bautista Salmon, [address] [facility], [place], [address]. tel:[phone] ng Provider: Malcolm Boateng, [address] [place] [address], [address]. tel:[phone] [facility] Physician s, [address] [place], [address], [place] tel:[phone] [facility] [place] 2 month Return (chief complaint) Primary open-angle glaucoma, right eye, severe stagePrimary open-angle glaucoma, left eye, moderate stageUnspecifie d amblyopia, right eyeOther corneal scars and opacitiesPresen ce of intraocular lensAftercare following surgeryEncntr for surgical aftcr fol surgery on the sense organs Susan Barraza. [facility] [place], [place], [id number]. tel:[phone] Referring Provider: Malcolm Boateng, [address] [place] [address], [address]. tel:[phone] [facility], [facility] [place], [address], [place] tel:[phone] [facility] [place] 4 Weeks Post op s/p Phaco/iSten t (chief complaint) Presence of intraocular lensUnspecified amblyopia, right eyePrimary open-angle glaucoma, right eye, severe stagePrimary open-angle glaucoma, left eye, moderate stageAftercare following surgery Susan Barraza. [facility] [place], [place], [id number]. tel:[phone] Referring Provider: Malcolm Boateng, [address] [place] [address], [address]. tel:[phone] [facility], [facility] [place], [address], [place] tel:[phone] MICH Tariq 1 week Phaco/i-Rock nt postop exam (chief complaint) Presence of intraocular lensBlepharitis of upper and lower eyelids of both eyes, unspecified typeAllergic conjunctivitis of left eyeAftercare following surgery Dorotacarlitos Barraza. [facility] [place], [place], [id number]. tel:[phone] Referring Provider: Malcolm Boateng, [address] [place] [address], [address]. tel:[phone] [facility], [facility] [place], [address], [place] tel:[phone] [facility] [place] Urgent (chief complaint)U rgent continue (chief complaint) Presence of intraocular lensBlepharitis of upper and lower eyelids of both eyes, unspecified typeUnspecified blepharitis right lower eyelidUnspecifi ed blepharitis left upper eyelidUnspecifi ed blepharitis left lower eyelid Apr- Javier Chase. [address] [place], [place], [id number]. tel:[phone] Referring Provider: Malcolm Boateng, [address] [place] [address], [place], [address]. tel:[phone] [facility] Physician s, [address] [place], [address], [place] tel:[phone] [facility] 1 day phaco/i-rock nt postop exam (chief complaint) Presence of intraocular lensPrimary open-angle glaucoma, left eye, moderate stagePrimary open-angle glaucoma, right eye, severe stageAftercare following surgery Oct- Susan Barraza. [address] [place], [place], [id number]. tel:[phone] Referring Provider: Malcolm Boateng, [address] [place] [address], [place], [address]. tel:[phone] [facility], [address] [place], [address], [place] [phone] [facility] [place] Primary open-angle glaucoma, left eye, moderate stageAge-relate d nuclear cataract, left eye Oct- [facility] [place]. [address] [place], [place], [id number], [place]. tel:[phone] Referring Provider: Chrsiti Bolanos, [address] [place], [address]. tel:[phone] [facility] Physician s, [address] [place], [address], [place] tel:[phone] [facility] [place] Primary open-angle glaucoma, left eye, moderate stageAge-relate d nuclear cataract, left eye Oct- 7 Susan Barraza. [address] [place], [place], [id number]. tel:[phone] Referring Provider: Malcolm Boateng, [address] [place] [address], [place], [address]. tel:[phone] [facility], [address] [place], [address], [place] [phone] [facility] [place] No Information Oct- 5 7 [facility]. [address] [place], [place], [id number], [place]. tel:[phone] OFFICE/OUTPA TIENT VISIT, EST [facility], [address] [place], [address], [place] [phone] [facility] glaucoma, followup (chief complaint) Age-related nuclear cataract, left eyePrimary open-angle glaucoma, right eye, severe stagePrimary open-angle glaucoma, left eye, moderate stageUnspecifie d amblyopia, right eyePtosis of eyelid, right Sep- 7 [place]. [address] [place], [place], [id number]. tel:[phone] Referring Provider: Malcolm Boateng, [address] [place] [address], [place], [address]. tel:[phone] [facility] Physician s, [address] [place], [address], [place] tel:[phone] [facility] cataract evaluation (chief complaint) Primary open-angle glaucoma, right eye, severe stagePrimary open-angle glaucoma, left eye, mild stageOther corneal scars and opacitiesUnspec ified amblyopia, right eyeAge-related nuclear cataract, left eyePtosis of eyelid, right Aug- 7 [place]. [address] [place], [place], [id number]. tel:[phone] Referring Provider: Malcolm Boateng, [address] [facility], [place], [address]. tel:[phone] [facility] Physician s, [address] [place], [address], [place] tel:[phone] [facility] f/u exam, postop (chief complaint) No Information Apr- 0- 4 [place]. [address] [place], [place], [id number]. tel:[phone] Referring Provider: Malcolm Boateng, [address] [place] [address], [address]. tel:[phone] [facility], [address] [place], [address], [place] tel:[phone] [facility] [place] f/u exam, postop (chief complaint) No Information Mar- 4 [place]. [address] [place], [place], [id number]. tel:[phone] Specialist: Romero Martins, [address] [facility] [address], [place], [address]. tel:[phone] ng Provider: Malcolm Boateng, [address] [place] [address], [address]. tel:[phone] OFFICE/OUTPA TIENT VISIT, EST [facility], [address] [place], [address], [place] [phone] [facility] [place] f/u exam, postop (chief complaint) No Information Mar- 4 [place]. [address] [place], [place], [id number]. tel:[phone] Referring Provider: Malcolm Boateng, [address] [place] [address], [address]. tel:[phone] [facility] Physician s, [address] [place], [address], [place] tel:[phone] [facility] [place] 2 wk s/p phaco/trab (chief complaint) No Information Mar- 4 [place]. [address] [place], [place], [id number]. tel:[phone] Referring Provider: Malcolm Boateng, [address] [place] [address], [address]. tel:[phone] [facility], [address] [place], [address], [place] tel:[phone] [facility] [place] f/u exam, postop (chief complaint) No Information 4 Javier Chase. [address] [place], [place], [id number]. tel:[phone] Referring Provider: Malcolm Boateng, [address] [place] [address], [address]. tel:[phone] [facility] Physician s, [address] [place], [address], [place] tel:[phone] [facility] [place] f/u exam, postop (chief complaint) No Information 4 [place]. [address] [place], [place], [id number]. tel:[phone] Referring Provider: Malcolm Boateng, [address] [place] [address], [address]. tel:[phone] [facility] Physician s, [address] [place], [address], [place] tel:[phone] [facility] [place] 4 day glaucoma trab post op exam (chief complaint) No Information 4 [place]. [facility] [place], [place], [id number]. tel:[phone] Referring Provider: Malcolm Boateng, [address] [place] [address], [address]. tel:[phone] [facility] Physician s, [address] [place], [address], [place] [phone] [facility] [place] f/u exam, postop (chief complaint) No Information 4 [place]. [address] [place], [place], [id number]. tel:[phone] Referring Provider: Malcolm Boateng, [address] [place] [address], [address]. tel:[phone] [facility] Physician s, [address] [place], [address], [place] tel:[phone] [facility] [place] f/u exam, postop (chief complaint) No Information 4 [place]. [address] [place], [place], [id number]. tel:[phone] Referring Provider: Malcolm Boateng, [address] [place] [address], [place], [address]. tel:[phone] [facility] Physician s, [address] [place], [address], [place] tel:[phone] [facility] [place] No Information Jan-1 0-201 4 Javier Chase. [address] [place], [place], [id number]. tel:[phone] Referring Provider: Malcolm Boateng, [address] [place] [address], [place], [address]. tel:[phone] OFFICE/OUTPA TIENT VISIT, EST [facility], [address] [place], [address], [place] tel:[phone] [facility] [place] No Information Jan-0 5-201 4 Suresh Stovall. [address] [place], [place], [id number], [place]. tel:[phone] Referring Provider: Christi Bolanos, [address] [place], [address]. tel:[phone] [facility] Physician s, [address] [place], [address], [place] tel:[phone] [facility] [place] No Information Jan-0 3-201 4 Susan Barraza. [address] [place], [place], [id number]. tel:[phone] Referring Provider: Malcolm Boateng, [address] [facility], [place], [address]. tel:[phone] [facility] Physician s, [address] [place], [address], [place] tel:[phone] [facility] [place] No Information Dec-3 0-201 4 Susan Barraza. [address] [place], [place], [id number]. tel:[phone] Referring Provider: Malcolm Boateng, [address] [place], [address]. tel:[phone] [facility], [address] [place], [address], [place] tel:[phone] [facility] [place] No Information 4 Susan Barraza. [address] [place], [place], [id number]. tel:[phone] Referring Provider: Malcolm Boateng, [address] [facility], [place], [address]. tel:[phone] [facility], [address] [place], [address], [place] tel:[phone] [facility] [place] No Information 4 Susan Barraza. [address] [place], [place], [id number]. tel:[phone] Referring Provider: Malcolm Boateng, [address] [facility], [place], [address]. tel:[phone] [facility], [address] [place], [address], [place] tel:[phone] [facility] [place] No Information 4 Susan Barraza. [address] [place], [place], [id number]. tel:[phone] Referring Provider: Malcolm Boateng, [address] [facility], [place], [address]. tel:[phone] [facility], [address] [place], [address], [place] tel:[phone] [facility] [place] No Information 4 [facility]. [address] [place], [place], [id number], [place]. tel:[phone] Referring Provider: Christi Bolanos, [address] [place], [address]. tel:[phone] [facility], [address] [place], [address], [place] tel:[phone] [facility] [place] No Information 4 Susan Barraza. [address] [facility], [place], [place], [id number]. tel:[phone] Referring Provider: Malcolm Boateng, [address] [facility], [place], [address]. tel:[phone] Family History Family Member Type Diagnosis Age At Onset Mother Problem (finding) HBP Problem (finding) No Family history of Di abetes mellitus Problem (finding) No Family history of Re tinal Disorders Grandfather Problem (finding) glaucoma Problem (finding) No Family history of Ca ncer Father Problem (finding) cataract Father Problem (finding) No Family hist ory of No history of Retinal disease Payers Payer name Insurance type Covered democrat ID Authoriza ticaleb(s) Medicare [place] [id number] [facility] Healthcare Supplement [id number] Social History Type Description Quantity Date Captured Comments Sex Female Smoking Status No Information Chief Complaint And Reason For Visit No Information Reason For Referral Reason For Referral No Information Plan Of Treatment Date Type Action Status Referral Ordered: Romero Martins -Internal Medicine (related to Blepharitis of upper and lower eyelids of both eyes, unspecified type) ordered Referral Referred To: Romero Martins [address] [place] [phone] Ordered: Referrals: Internal Medicine. Romero Martins. Follow-up and Treat ordered Patient Education latanoprost 0.005 % eye drops completed Patient Education Timoptic Ocudose (PF) 0 .5 % eye drops~ completed Patient Education Timoptic Ocudose (PF) 0 .5 % eye drops~ completed Patient Education Timoptic Ocudose (PF) 0 .5 % eye drops~ completed Patient Education Timoptic Ocudose (PF) 0 .5 % eye drops~ completed Patient Education Timoptic Ocudose (PF) 0 .5 % eye drops~ completed History Of Present Illness Encounter Date Complaint History Of Prese nt Illness glaucoma f/u The 77 year old female presents for evaluation of glaucoma f/u in the right eye and left eye, presents for a 6 month glaucoma follow up with HVF. Pt states she feels like her peripheral vision in the right eye is changing some. Pt states VA stable since last OV and has not noticed any changes. Pt denies any pain, redness, headaches, flashes, floaters, or difficulty with treatment plan. Pt using drops correctly and is tolerating them well.Cos 0/2 Lat 0/1 Glaucoma, 6 month followup The 8 5 year old female presents for evaluation of Glaucoma, 6 month followup in the right and left eyes with DFE OU. Pt states VA stable since last OV and has noticed a change. Pt stated floaters OS that appear large and has been present on and off for 6 months and it is present like a fruit fly. Pt denies any pain, redness, headaches, flashes, or difficulty with treatment plan. Pt using drops correctly and is tolerating them well. Drop summary: Cosopt bid os, lat qhs os Glaucoma 3mo f/u The 76 year old female presents for evaluation of Glaucoma 3mo f/u in the right eye and left eye. Pt VA is okay. Pt denies any eye pain, flashes of light. Pt states she has a floater that stays in one place, and comes & goes. She states it [id number] after her last visit.Meds: Pt is complaint, and taking the prescribed drops glaucoma follow up The 76 year o ld female presents for evaluation of glaucoma follow up in the right eye and left eye. Pt states VA has been blurry pt states that it goes in and out. pt states that she is aware that she has dry eyes, pt states that when VA gets blurry she uses AT's but that it does not always work. Pt states that since she got her new glasses her eyes have become more tired. Pt states that she notices it a lot more at the end of the day but it does happen all day at times. Pt denies any pain, redness, headaches, flashes, floaters, or difficulty with treatment plan. Pt using drops correctly and is tolerating them well. Cosopt PF 0/2 Latano 0/1 Glaucoma f/u The 75 year old female presents for evaluation of Glaucoma f/u in the right eye and left eye, presents for a 5 month glaucoma follow up. Pt states VA is blurry and very light sensitive. Patient states it is off and on and not consistent, but more on than off. Pt denies any pain, redness, headaches, flashes, floaters, or difficulty with treatment plan. Pt using drops correctly and is tolerating them well. Cosopt 0/2 Lat 0/1 5 mo glaucoma f/u OU The 75 year old female presents for evaluation of 5 mo glaucoma f/u in the right and left eyes. Patient states VA is stable since last OV with no noticeable changes. Patient states that she had been dizzy for 6 weeks, states she went to her PCP and was prescribed medication that did not help. Patient states dizziness is subsiding. Patient mentions minor redness OU when she wakes up. Patient denies eye pain, headaches, flashes, or floaters. Patient is using Latano 0/hs @ 9:30p and Cosopt 0/2 @ 7:30a. Patient is compliant with treatment and is tolerating gtts well. 3 wk YAG PC PO The 74 year old female presents for evaluation of 3 wk YAG PC PO in the left eye. Pt VA improved since laser procedure. Pt reports occasional floaters. Pt denies any pain, redness, headaches, flashes, or difficulty with treatment plan. Pt used post procedure drops correctly and discontinued as directed by drop sheet instructions. 4 mo glaucoma f/u OU The 74 year old female presents for evaluation of 4 mo glaucoma f/u in the right and left eyes. Patient states that there's something changing in my vision and I can't quite put my finger on what it is. Patient states that she tends to feel dizzy when she's on walks or is carrying stuff, I feel like certain lines are more pronounced, or certain things look darker than others. Patient says that her vision is more distorted than blurry. Patient mentions that she has light sensitivity and feels like she can't see much when she walks outside on a pam day. Patient pain, headaches, flashes, or floaters. Patient uses Latano 0/1 @ 8:45p and Cosopt 0/2 @ 8:30a. Patient is complaint with treatment and is tolerating Latano well ,but says her evening drop of Cosopt will cause irritation and itchiness. Pt also recently fell on left side of face but did not hit eye. 7 month glaucoma follow up The 8 3 year old female presents for evaluation of 7 month glaucoma follow up in the right and left eyes. Patient states that vision has been stable since last visit. Denies having any eye pain, floaters, flashes of lights, and light sensitivity. Pt has been having inflammation on the top upper lid and clogged pores on lower lid, al on OD. Patient is on the following ocular medications: CS 0/2, Lat 0/1, taking as directed and tolerating well. 1-2 month glaucoma follow up The 73 year old female presents for evaluation of 1-2 month glaucoma follow up in the right and left eyes. Patient states that vision has been stable. Pt stated having a lump on the lid of left eye and has experienced having flashes in the right eye near bedtime. Denies having any eye pain, floaters, and light sensitivity. Patient is on the following ocular medications: Lat 0/1, James 0/1, taking as directed and tolerating well. Pt states that she experiences dry eye after applying Lat. 4 month glaucoma exam The 73 yea r old female presents for evaluation of 4 month glaucoma exam in the right and left eyes. Patient stated her vision has been stable in both eyes since her last visit. She denied any eye pain, flashes, or floaters. She stated she is using her drops as directed with no problems. 3 month glaucoma follow up The 8 2 year old female presents for evaluation of 3 month glaucoma follow up in the right and left eyes. Patient stated her vision has been stable in both eyes since her last visit. She stated she saw Dr Salmon and her prescription changes a a little bit. She denied any eye pain, flashes, or floaters. She stated she has been suing her drops as directed and is tolerating them well. IOP Glaucoma CK The 73 year old female presents for evaluation of IOP Glaucoma CK in the right and left eyes. Patient states vision has been good since last visit. Patient denies having any floaters, flashes of light & light sensitivity & eye pain. Patient id on the following ocular medications & tolerating them well : Timoptic 0/1 @ 730AM 3 month glaucoma follow up The 8 2 year old female presents for evaluation of 3 month glaucoma follow up in the right and left eyes. Patient states she has been doing well since her last glaucoma visit 3 months ago. Vision has been doing well. No eye pain or discomfort, occasional dryness. Patient denies any drop problems and is using drops correctly. overdue glaucoma follow up The 8 1 year old female presents for evaluation of overdue glaucoma follow up in the right and left eyes. Patient states she has noticed a slight decrease in vision OS since her last visit. Patient states that both near and distance vision appear to be affected. Patient denies having any eye pain, floaters, and flashes of light. Patient feels she has become more light sensitive over the past few months, rates sensitivity as mild. Patient is bothered by fluorescent lights. Patient is currently taking Timoptic PF 0/1 @7am. Patient tolerates gtts well. goino/follow up/HVF The 72 year old female presents for evaluation of goino/follow up/HVF in the right and left eyes. Patient states she got an update in her glasses with Dr. Salmon. Patient states sometimes she gets a feeling like there is something in her eye. She believes it is from the dry eye. Patient is taking timoptic PF correctly. 6 month dilated exam and HVF The 72 year old female presents for 6 month dilated exam and HVF in the right and left eyes. Pt feels vision has remained stable since last visit. Pt denies any eye pain. Pt occasioanlly has a foreign body sensation OD. Pt reports using drops as directed and feels she is tolerating well. 2 month Return The 71 year old female presents for evaluation of 2 month Return in the right and left eyes. Patient states that her vision seems to be doing well and is stable from her last visit. She states that she hasn't noticed any eye pain or headaches and is using her gtts as directed without any issues. No new changes today. 4 Weeks Post op s/p Phaco/iStent The 71 year old female presents for 4 Weeks Post op s/p Phaco/iStent in the left eye. Patient states that her va is fine. She is using James (PF) 0/1, Pro 0/1, PF 0/1, Systane (PF) prn OU, [facility] Eye Itch Relief OD only. She is tolerating dea drops well. Her right eye itches alot and also tears, also her right eye feels swollen and FBS sometimes. Patient denies any eye pain, floaters/flashes. 1 week Phaco/i-Stent postop exam The 71 year old female presents for evaluation of 1 week Phaco/i-Stent postop exam in the left eye. Patient states that the vision in her left eye is awesome and she is really happy with the right eye. Patient states that her left eye lids are itchy, red and her eye is watery. Karlos was seen on Tuesday by [facility] and states that since then she feel that her Blepharitis sysmptoms have improved. Patient is currently using warm compresses on her left eye 5 minutes at a time two times a day. Patient is currently using Pred 0/3, Prolensa 0/1, Timoptic 0/2 and PF tears as needed. Patient states that J stopped her Trusopt on and state that yesterday was supposed to be the last day for Polytrim but states that she did put it in her left eye. Patient denies any eye pain. Urgent The 71 year old female presents for evaluation of Urgent in the right and left eyes. Patient had iStent place in her left eye on 10/27/16. She states that starting yesterdya evening it started itching, burning, the nasal side of eye looked red and felt sore. She states that over night got worse, she used Refresh and systane on and off throughtout the night because the discomfort kept her awake, the drops helped a little but than felt worse again. This morning when got up at 5:30 the eye was very swollen shut with the pocket kind formation the upper eye lid and had gluey diposition all around the eye. She also states that her face underneath the lower eye lid was swollen too this morning. Her nose was very runy and was sneezing periodically. She is using Poly 0/4, Pred Forte 0/4, Pro 0/1, James (PF) 0/2, Qasim 0/2. She is not sure if her eye conditionis due to the reaction from any drops or not, or is she having any infection,or from the allergies but she is not prone to seasonal allergies. Urgent continue 1 day phaco/i-stent postop exam glaucoma, followup 1 month glauc jose follow up of both eyes. Pt says she is using drops as directed. Pt says she always has a little bit of double vision. Pt denies eye pain. Pt says in the last few weeks she has had 2 ocular migraines. cataract evaluation Pt referred by Dr. Boateng for cataract evaluation of left eye. Pt says she is on 3 drops for glaucoma in her left eye which she says she is using as directed per Dr. Boateng. Pt says she has difficulty seeing to read, drive during the day and at night, read street signs, and do fine handiwork. Pt says she noticed decrease in vision of left eye over the last 2 years. Pt says it has progressively gotten worse since then. f/u exam, postop The 68 year old female presents for evaluation of f/u exam, postop phaco/trab in the right eye from about 2 week(s) ago. The patient feels it is mild. The condition is described as a foreign body sensation, and she notices this more so in the morning and refresh has helped some. Patient denies any drop problems and is using drops correctly. f/u exam, postop The 68 year old female presents for evaluation of f/u exam, postop phaco/trab in the right eye. It started about 3 day(s) ago. The patient feels it is moderate. The condition is described as a foreign body sensation, it feels like a piece of sand. Patient denies any drop problems and is using drops correctly. f/u exam, postop The 68 year old female presents for evaluation of f/u exam, postop phaco/trab in the right eye from about 2 week(s) ago. The patient feels that his vision is stable, and she describes it as clear vision. Patient states that yesterday she was scratchy all day she used the refresh and this seemed to help because it doesnt feel scratchy anymore. 2 wk s/p phaco/trab The 68 year old female presents for evaluation of 2 wk s/p phaco/trab in the right eye. Patient states vision is stable in the right eye. Patient denies any eye pain and drop problems and is using them correctly. Patient states she has been having some dry eye but is using the refresh which seems to help. Patient starting using Durezol 1/0 on 03/05/14 and patient feels like it is helping. f/u exam, postop The 68 year old female presents for evaluation of f/u exam, postop phaco/trab in the right eye. It started today. The patient feels it is mild. The condition is described as an achy feeling. Patient denies any drop problems and is using drops correctly. f/u exam, postop The 68 year old female presents for evaluation of f/u exam, postop phaco/trab in the right eye from about 2 week(s) ago. Patient states that her vision is improving, and she describes it as fuzzy vision. Patient denies any drop problems and is using drops correctly. 4 day glaucoma trab post op exam The 68 year old female presents for evaluation of 4 day glaucoma trab post op exam in the right eye. Patient states that her vision is stable, and she describes it as fuzzy vision. Patient denies eye pain and any drop problems and is using drops correctly. Patient states that the eye lid swelling has gone done a lot to where she can actually blink now. f/u exam, postop The 68 year old female presents for evaluation of f/u exam, postop Phaco/Trab in the right eye (12/13/13). Patient states that her eye has been sore off and on since Tuesday. Patient states that her eye is still sensitive to the light and that her eye has started tearing again. Patient denies any noticable decreased vision. f/u exam, postop The 68 year old female presents for evaluation of f/u exam, postop Phaco/Trab in the right eye with complaints of tearing. Patient states that since surgery her eye has been sensitive and tearing. Patient states that yesterday her eye seemed to be doing better but when she woke up today the tearing had started back up again. Patient states that it also feels as if there is sand in her eye, a scratchy feeling. Patient denies any noticable decrase in vision. Functional Status Date Functional Assessmen t No Information Instructions Date Instruction Additional Infor luis Impression/Plan Impression/Plan Impression/Plan Return in 4 months w melvin Davis MD for follow up exam. Related to Primary open-angle glaucoma, left eye, moderate stage Impression/Plan Impression/Plan Impression/Plan Impression/Plan Impression/Plan Impression/Plan Impression/Plan Impression/Plan Impression/Plan Impression/Plan Impression/Plan Impression/Plan - Glaucoma is stable . Continue any current medications. Monitor for progression with IOP, visual field and ancillary testing.james pf qam osgoing to [place] for 2 monthsiop check 4 monthsdilated exam 8 monthslid hygiene care (spray)call madan if eye becomes red, pain or change in vision Related to See impression details - Return - 4 months with Christi Davis MD for VA and IOP check. Related to See impression details - Glaucoma is stable . Continue any current medications. Monitor for progression with IOP, visual field and ancillary testing. Possible hvf fluctuation os. continue james qam os (PF). No rubbing.Repeat hvf os Related to See impression details - Return - 4 months with Christi Davis MD for IOP check & visual field and Gonioscopy. Related to See impression details - s/p phaco/iol/trab eculectomy od, phaco/iol/iStent os, doing great!Pt VERY HAPPY with prisms and working with Dr. Salmon. States she had never successfully been able to use both eyes together and now she can!IOP acceptable, CSMReviewed again when to call madan if change vision, pain, redness Related to See impression details - Return - 4 months with Christi Davis MD for VA, IOP, VF and dilated exam. Related to See impression details - doing great s/p phaco/iol/trabeculectomy od, phaco/iol/iStent oscontinue james (pf) qam os and artificial tears prn ouPt wants referral to new optom Related to See impression details - Return - 2 months with Christi Davis MD for VA and IOP check. Related to See impression details - pt states some imp rovement though inc in follicles os. ok to stay off tcai and dec james (pf) to qam. continue prolensa and pf taper and cool compresses prncall if worse Related to See impression details - Return - 2-3 wks p ost op with Dr. Davis Related to See impression details - Post op instructio ns given. Resume systemic meds. Continue james bid OS / stop trusopt / Polytrim qid OS/ prolensa qd OS/ pf 4,3,2,1,0/wc bid /art tears prn ouFollow up in 2 daysCall if any changes Related to See impression details - Return - 2 days wi th Christi Davis MD for VA and IOP check. Related to See impression details - Return - 1 week wi th Christi Davis MD for post op exam. Related to See impression details - doing well s/p pha co/iol/iStent os. Post op instructions given. Resume systemic meds. d/c zioptan and continue james biod , trusopt bid . Polytrim qid, prolensa qd, pf 4,3,2,1,0 Related to See impression details - IOP too high os on mtmt. Cataract visually signif and pt wants to see better. Contineu zioptan qhs os and james bid os. Phaco/IOL/iStent OS recommended. Risks/benefits/alternatives discussed with patient including with the procedure risk of IOP too high or too low requiring more surgery, bleeding, infection, inflammation, retinal problems, 07/999 chance of permanent loss of vision. Patient understands the above recommended procedure and wishes to proceed. Multifocal IOL not recommended.See also DOS 2.14.17. Related to See impression details - Return - next avai lable week(s) with Christi Davis MD for surgical procedure. Related to See impression details - Pt is having troub le with adl for os and wants to see better. IOP borderlilne.od is s/p phaco/iol/trabobtain records from Dr. Boateng. Repeat hvf to determine best options: phaco/iol os alone, with trabeculectomy or with MIGS.csm Related to See impression details - Return - next avai lable week(s) with Christi Davis MD for IOP check & visual field.send letter then Related to See impression details - s/p phaco/trab od, doing well off all gtts od!Consider sms consult for long-standing diplopia, strabismusReturn care to Dr. Blackburn. See him in 2 months. Related to See impression details - Return in PRN prn with Christi Davis MD Related to See impression details - doing well. Off al l gtts od except for weekly pf and lubricants. May need additional laser suture lysis down the road as bleb is small but want to avoid hypotony. Additional suture removal should not affect refraction.OK to get refraction with Dr. Boateng now before patient goes out of town.Recheck ou on Apr 19. Related to See impression details - Return in 10 day(s ) with Christi Davis MD for [facility], IOP check ou Related to See impression details - Return in 3 day(s) with Christi Davis MD for post op exam Related to See impression details - bleb trying to sca rmay need lsl # 2 at next visitcsm Related to See impression details - Return in 2 week(s ) with Christi Davis MD for post op exam Related to See impression details - possible steroid r [place] respond to dpslow taper, change durezol to pf 2,1, weekly then 2 times/wk for 1 wk then 1time/wk then d/c Related to See impression details - Return in 2 week(s ) with MOISES for [facility], IOP check Related to See impression and plan - restart durezol qd OD/ Continue timoptic ocudose bid OS/zioptan qhs OS/ trusopt bid OS/refresh prn [place]Going to [place] for 2 weeksPt has vigamox - call if any redness/pain/ change in vision recheck in 2 weeks Related to See impression and plan - d/c vigamoxtaper d urezol 2,1,0 weeklycontinue gtts in osok to go up to [place], restart vigamox and call madan if eye red Related to See impression details - Return in 3-4 week (s) with Christi Davis MD for post op exam Related to See impression details - csmnl lite activit y but no pilates yet Related to See impression details - Return in 2 week(s ) with Christi Davis MD for post op exam Related to See impression details - Return in 2 day(s) with Christi Davis MD for post op exam Related to See impression details - continue bclconsider lsl soon Related to See impression details - change durezol 3/0 , vigamox 3/0, gregory 1/0, zioptan 0/1, trusopt 0/2, timoptic 0/2, refresh prn. BCL put in today. 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- s/p comb OD- iop borderline- LENS REPLACEMENT OD- AMBLYOPIA NOS - OU: Educational materials provided: Primary Diagnosis.Continue durezol qid OD and vigamox qid OD/gregory nikki qhs ODZioptan qhs OS/trusopt bid os/timoptic bid OSsame precautions/shield at qhs/no lifting-bendingSee KAYLEE next week Related to See impression: general plan - Return in 3-4 day( s) with Christi Davis MD for post-op Related to See impression: general plan - Return in PRN to [facility] Related t o See impression: general plan - Subconjunctival bl eed - pt reassured, no cause for concern.- LENS REPLACEMENT NEC - IOL stable.- PRIM OPEN ANGLE GLAUCOMA - s/p trab with intact closed incision. - Cont. drops as scheduled. AT's prn/tylenol prn/oint QHS prn. See LJG as scheduled. Related to See impression: general plan - PRIM OPEN ANGLE GL AUCOMA- Severe Stage Glaucoma, flat bleb- LENS REPLACEMENT NEC- AMBLYOPIA NOS - OU: Educational materials provided: Primary Diagnosis.dec durezol to qid (pt with multiple allergies), continue vigamoxjdh 1 week, ljg 2 weeks Related to See impression: general plan - Return in 2 day(s) with Christi Davis MD for post op exam. Related to See impression: general plan - PRIM OPEN ANGLE GL AUCOMA- Severe Stage Glaucoma, doing well post op- AMBLYOPIA NOS- LENS REPLACEMENT NEC - OU: Educational materials provided:Primary Diagnosis.continue, vigamox 4/0, timoptic 0/2, zioptan 0/1, trusopt 0/2.stp pf and start durezol 5 times a day. 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 Related to See impression: general plan - Return in 4 day(s) with Christi Davis MD for post op exam. 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 Resume systemic meds: Pred Forte Q2h OD, Vigamox 4/0, Timoptic 0/2, Zioptan 0/1 , Trusopt 0/2 Related to See impression: general plan - Return in next vineet ilable week(s) with Christi Davis MD for IOP check & visual field and OCT. 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 Then irrigated w BSS after patient stated she may be allergic to it.csmObtain additional info from Drs. Blackburn and Franc: baseline and recent iop and dx of retinal path ?rubeosis, ?milady of retinaHigh astigmatism od, given amblyopia toric may not be worthwhile but would try refraction od with full cylinderconsider phaco/trab od Related to See impression: general plan Assessments Type Assessment Date No Information Patient Care Teams Name Effective Dates (start - stop) Status Members No Information
--- OUTSIDE RECORDS SUMMARY | 2023-11-02 11:06 | XMS_ITS | Continuity of Care Document ---
Author Organization [facility] Address [address] [place] [address] Phone Care Team Providers Care Pet Care Worker Name Role Phone Susan SMALL, Christi Unavailable [...] route every day 150 MG - Active valsartan 160 mg tablet take 1 tablet by oral route every day 160 MG - Active Augmentin 875 mg-125 mg tablet take 1 tablet by oral route every 12 hours for 10 days - Active Vitamin D3 2,000 unit tablet [...] Copied on Encounter [facility], [address] [place], [place], [facility], [place] tel:[phone] [facility] No Information 4 Susan Barraza. [address] [place], [place], [id number]. tel:[phone] [facility], [address] [place], [place], [facility], [place] tel:[phone] [facility] No Information 3 Corporate Doctor. [address] [place], [place], [id number], [place]. tel:[phone] [facility], [address] [place], [place], [facility], tel:[phone] [facility] No Information 3 Susan Barraza. [address] [place], [place], [id number]. tel:[phone] OFFICE/OUTPA TIENT VISIT, EST, Low [facility], [address] [place], [place], [facility], [place] [phone] [facility] glaucoma f/u (chief complaint) Optic nerve hemorrhage, leftKeratoconju nctivitis sicca of both eyes not specified as Sjogren'sHypoto ny of right eye due to ocular fistulaUnspecif ied amblyopia, right eyePrimary open angle glaucoma (POAG) of both eyes, severe stage 3 Susan Barraza. [address] [place], [place], [id number]. tel:[phone] Referring Provider: Christi Bolanos, [address] [place], [address]. tel:[phone] OFFICE/OUTPA TIENT VISIT, EST, Moderate [facility], [address] [place], [place], [facility], [place] tel:[phone] [facility] Glaucoma, 6 month followup (chief complaint) Primary open-angle glaucoma, right eye, severe stagePrimary open-angle glaucoma, left eye, moderate stageKeratoconj unctivitis sicca of both eyes not specified as Sjogren'sUnspec ified amblyopia, right eyeEpiretinal membrane (ERM) of right eye 3 [place]. [address] [place], [place], [id number]. tel:[phone] Other Provider: Bautista Salmon, [address] [place] [address], [address]. tel:[phone] keen Provider: No Ref Doc No Referring Doc. OFFICE/OUTPA TIENT VISIT, EST, Low [facility], [address] [place], [place], [facility], [place] tel:[phone] [facility] Glaucoma 3mo f/u (chief complaint) Primary open-angle glaucoma, right eye, severe stagePrimary open-angle glaucoma, left eye, moderate stageKeratoconj unctivitis sicca of both eyes not specified as Sjogren'sUnspec ified amblyopia, right eye 2 [place]. [address] [place], [place], [id number]. tel:[phone] Referring Provider: No Ref Doc No Referring Doc. OFFICE/OUTPA TIENT VISIT, EST, Moderate [facility], [address] [place], [place], [facility], [place] tel:[phone] [facility] glaucoma follow up (chief complaint) Primary open-angle glaucoma, right eye, severe stagePrimary open-angle glaucoma, left eye, moderate stageUnspecifie d amblyopia, right eyeHypotony of right eye due to ocular fistulaOptic nerve hemorrhage, left Sep- 2 [place]. [address] [place], [place], [id number]. tel:[phone] Other Provider: Bautista Salmon, [address] [place] [address], [place], [address]. tel:[phone] ng Provider: No Ref Doc No Referring Doc. OFFICE/OUTPA TIENT VISIT, EST, Moderate [facility], [address] [place], [address], tel:[phone] [facility] Glaucoma f/u (chief complaint) Primary open-angle glaucoma, right eye, severe stagePrimary open-angle glaucoma, left eye, mild stagePresence of intraocular lensKeratoconju nctivitis sicca of both eyes not specified as Sjogren's Sep- 0 1 Javier Chase. [address] [place], [place], [id number]. tel:[phone] Other Provider: Bautista Salmon, [address] [place] [address], [facility]. tel:[phone] Provider: No Ref Doc No Referring Doc. OFFICE/OUTPA TIENT VISIT, EST, Low [facility], [address] [place], [place], [facility], tel:[phone] [facility] 5 mo glaucoma f/u OU (chief complaint) Primary open-angle glaucoma, right eye, severe stagePrimary open-angle glaucoma, left eye, moderate stageHypotony of right eye due to ocular fistula Oct- 1 Susan Barraza. [address] [place], [place], [id number]. tel:[phone] Referring Provider: No Ref Doc No Referring Doc. [facility], [address] [place], [facility], [place] tel:[phone] [facility] 3 wk YAG PC PO (chief complaint) Secondary cataract of left eye, unspecified secondary cataract typePrimary open-angle glaucoma, right eye, severe stagePrimary open-angle glaucoma, left eye, mild stageHypotony of right eye due to ocular fistulaPresence of intraocular lens 0 Javier Chase. [address] [place], [place], [id number]. tel:[phone] Referring Provider: Rena Gottlieb, [address] [place], [address]. tel:[phone] [facility], [address] [place], [address], [place] tel:[phone] [facility] Encntr for surgical aftcr fol surgery on the sense organs Oct-2 0 Susan Barraza. [address] [place], [place], [id number]. tel:[phone] Referring Provider: Christi Bolanos, [address] [place], [address]. tel:[phone] [facility], [address] [place], [place], [facility], tel:[phone] [facility] Other secondary cataract, left eye Oct-2 0 [facility] [place]. [address] [place], [place], [id number], [place]. tel:[phone] Referring Provider: Christi Bolanos, [address] [place], [address]. tel:[phone] [facility], [address] [place], [address], [place] tel:[phone] [facility] Other secondary cataract, left eye Oct-2 0 Susan Barraza. [address] [place], [place], [id number]. tel:[phone] Referring Provider: Christi Bolanos, [address] [place], [address]. tel:[phone] [facility], [address] [place], [address], [place] tel:[phone] [facility] 4 mo glaucoma f/u OU (chief complaint) Secondary cataract of left eye, unspecified secondary cataract typePrimary open-angle glaucoma, right eye, severe stagePrimary open-angle glaucoma, left eye, moderate stageHypotony of right eye due to ocular fistulaUnspecif ied amblyopia, right eyePresence of intraocular lens Oct-0 0 Susan Barraza. [address] [place], [place], [id number]. tel:[phone] Referring Provider: Christi Bolanos, [address] [place], [address]. tel:[phone] OFFICE/OUTPA TIENT VISIT, EST [facility], [address] [place], [address], [place] [phone] [facility] 7 month glaucoma follow up (chief complaint) Primary open-angle glaucoma, right eye, severe stagePrimary open-angle glaucoma, left eye, moderate stagePresence of intraocular lens May- 0 Susan Barraza. [facility] [place], [place], [id number]. tel:[phone] Referring Provider: Christi Bolanos, [address] [place], [address]. tel:[phone] OFFICE/OUTPA TIENT VISIT, EST [facility], [address] [place], [address], [place] [phone] [facility] 1-2 month glaucoma follow up (chief complaint) Primary open-angle glaucoma, right eye, severe stagePrimary open-angle glaucoma, left eye, moderate stageHypotony of right eye due to ocular fistulaCorneal edema of right eyeOther corneal scars and opacitiesPtosis of eyelid, right Nov-201 9 Susan Barraza. [address] [place], [place], [id number]. tel:[phone] Referring Provider: Christi Bolanos, [address] [place], [address]. tel:[phone] [facility], [address] [place], [address], [place] tel:[phone] [facility] Primary open-angle glaucoma, right eye, severe stagePrimary open-angle glaucoma, left eye, moderate stage Sep-2 -201 9 Susan Barraza. [address] [place], [place], [address]. tel:[phone] Referring Provider: No Ref Doc No Referring Doc. [facility], [address] [place], [address], [place] tel:[phone] [facility] 4 month glaucoma exam (chief complaint) Primary open-angle glaucoma, right eye, severe stagePrimary open-angle glaucoma, left eye, moderate stageEpiretinal membrane (ERM) of right eyeCorneal edema of right eyeOther corneal scars and opacitiesPtosis of eyelid, rightPresence of intraocular lens Mar- 9 Susan Barraza. [address] [place], [place], [address]. tel:[phone] Referring Provider: Christi Bolanos, [address] [place], [address]. tel:[phone] OFFICE/OUTPA TIENT VISIT, EST [facility] Physician s, [address] [place], [address], [place] tel:[phone] [facility] 3 month glaucoma follow up (chief complaint) Primary open-angle glaucoma, right eye, severe stagePrimary open-angle glaucoma, left eye, moderate stageOther corneal scars and opacitiesPtosis of eyelid, rightPresence of intraocular lensCorneal edema of right eye 9 Susan Barraza. [address] [place], [place], [id number]. tel:[phone] Other Provider: Bautista Salmon, [address] [facility], [place], [address]. tel:[phone] Provider: Malcolm Boateng, [address] [place], [address]. tel:[phone] OFFICE/OUTPA TIENT VISIT, EST [facility] Physician s, [address] [place], [address], [place] tel:[phone] [facility] IOP Glaucoma CK (chief complaint) Primary open-angle glaucoma, right eye, severe stagePrimary open-angle glaucoma, left eye, moderate stageHypotony of right eye due to ocular fistula Sep- 9 Susan Barraza. [address] [place], [place], [id number]. tel:[phone] Referring Provider: Malcolm Boateng, [address] [place] [address], [address]. tel:[phone] OFFICE/OUTPA TIENT VISIT, EST [facility], [address] [place], [address], [place] [phone] [facility] 3 month glaucoma follow up (chief complaint) Primary open-angle glaucoma, right eye, severe stagePrimary open-angle glaucoma, left eye, moderate stageHypotony of right eye due to ocular fistulaUnspecif ied amblyopia, right eyePresence of intraocular lensSecondary cataract of left eye, unspecified secondary cataract typeEpiretinal membrane (ERM) of right eye 9 Susan Barraza. [address] [place], [place], [id number]. tel:[phone] Referring Provider: Malcolm Boateng, [address] [place] [address], [address]. tel:[phone] OFFICE/OUTPA TIENT VISIT, EST [facility], [address] [place], [address], [place] [phone] CAYETANOIsiah Tariq overdue glaucoma follow up (chief complaint) Primary open-angle glaucoma, right eye, severe stagePrimary open-angle glaucoma, left eye, moderate stageUnspecifie d amblyopia, right eyeHypotony of right eye due to ocular fistula Apr- 8 [place]. [address] [place], [place], [id number]. tel:[phone] Other Provider: Bautista Salmon, [address] [place], [address]. tel:[phone] ng Provider: Malcolm Boateng, [address] [place] [address], [address]. tel:[phone] OFFICE/OUTPA TIENT VISIT, EST [facility], [address] [place], [address], [place] [phone] [facility] goino/follo w up/HVF (chief complaint) Primary open-angle glaucoma, right eye, severe stagePrimary open-angle glaucoma, left eye, moderate stageAge-relate d nuclear cataract, left eyeUnspecified amblyopia, right eyeBlepharitis of upper and lower eyelids of both eyes, unspecified typeUnspecified blepharitis right lower eyelidUnspecifi ed blepharitis left upper eyelidUnspecifi ed blepharitis left lower eyelid 8 [place]i. [address] [place], [place], [address]. tel:[phone] Referring Provider: Malcolm Boateng, [address] [place] [address], [address]. tel:[phone] OFFICE/OUTPA TIENT VISIT, EST [facility] Physician s, [address] [place], [address], [place] tel:[phone] [facility] 6 month dilated exam and HVF (chief complaint) Primary open-angle glaucoma, right eye, severe stagePrimary open-angle glaucoma, left eye, moderate stageOther corneal scars and opacitiesPresen ce of intraocular lensUnspecified amblyopia, right eyeBlepharitis of upper and lower eyelids of both eyes, unspecified type 8 Grecarlitos Barraza. [address] [place], [place], [id number]. tel:[phone] Other Provider: Bautista Salmon, [address] [facility], [place], [address]. tel:[phone] ng Provider: Malcolm Boateng, [address] [place] [address], [address]. tel:[phone] [facility] Physician s, [address] [place], [address], [place] tel:[phone] [facility] 2 month Return (chief complaint) Primary open-angle glaucoma, right eye, severe stagePrimary open-angle glaucoma, left eye, moderate stageUnspecifie d amblyopia, right eyeOther corneal scars and opacitiesPresen ce of intraocular lensAftercare following surgeryEncntr for surgical aftcr fol surgery on the sense organs Susan Barraza. [facility] [place], [place], [id number]. tel:[phone] Referring Provider: Malcolm Boateng, [address] [place] [address], [address]. tel:[phone] [facility], [facility] [place], [address], [place] tel:[phone] [facility] 4 Weeks Post op s/p Phaco/iSten t (chief complaint) Presence of intraocular lensUnspecified amblyopia, right eyePrimary open-angle glaucoma, right eye, severe stagePrimary open-angle glaucoma, left eye, moderate stageAftercare following surgery Susan Barraza. [facility] [place], [place], [id number]. tel:[phone] Referring Provider: Malcolm Boateng, [address] [place] [address], [address]. tel:[phone] [facility], [facility] [place], [address], [place] tel:[phone] MICH Tariq 1 week Phaco/i-Rock nt postop exam (chief complaint) Presence of intraocular lensBlepharitis of upper and lower eyelids of both eyes, unspecified typeAllergic conjunctivitis of left eyeAftercare following surgery Dorotacarlitos Barraza. [facility] [place], [place], [id number]. tel:[phone] Referring Provider: Malcolm Boateng, [address] [place] [address], [address]. tel:[phone] [facility], [facility] [place], [address], [place] tel:[phone] CAYETANOI [facility] Urgent (chief complaint)U rgent continue (chief complaint) Presence of intraocular lensBlepharitis of upper and lower eyelids of both eyes, unspecified typeUnspecified blepharitis right lower eyelidUnspecifi ed blepharitis left upper eyelidUnspecifi ed blepharitis left lower eyelid Apr- Javier Chase. [address] [place], [place], [id number]. tel:[phone] Referring Provider: Malcolm Boateng, [address] [place] [address], [place], [address]. tel:[phone] [facility] Physician s, [address] [place], [address], [place] tel:[phone] [facility] 1 day phaco/i-rock nt postop exam (chief complaint) Presence of intraocular lensPrimary open-angle glaucoma, left eye, moderate stagePrimary open-angle glaucoma, right eye, severe stageAftercare following surgery Oct- Susan Barraza. [address] [place], [place], [id number]. tel:[phone] Referring Provider: Malcolm Boateng, [address] [place] [address], [place], [address]. tel:[phone] [facility], [address] [place], [address], [place] [phone] [facility] Primary open-angle glaucoma, left eye, moderate stageAge-relate d nuclear cataract, left eye Oct- [facility] [place]. [address] [place], [place], [id number], [place]. tel:[phone] Referring Provider: Christi Bolanos, [address] [place], [address]. tel:[phone] [facility] Physician s, [address] [place], [address], [place] tel:[phone] [facility] Primary open-angle glaucoma, left eye, moderate stageAge-relate d nuclear cataract, left eye Oct- 7 Susan Barraza. [address] [place], [place], [id number]. tel:[phone] Referring Provider: Malcolm Boateng, [address] [place] [address], [place], [address]. tel:[phone] [facility], [address] [place], [address], [place] [phone] [facility] No Information Oct- 5 7 [facility]. [address] [place], [place], [id number], [place]. tel:[phone] OFFICE/OUTPA TIENT VISIT, EST [facility], [address] [place], [address], [place] [phone] [facility] glaucoma, followup (chief complaint) Age-related nuclear cataract, left eyePrimary open-angle glaucoma, right eye, severe stagePrimary open-angle glaucoma, left eye, moderate stageUnspecifie d amblyopia, right eyePtosis of eyelid, right Sep- 7 [place]. [address] [place], [place], [id number]. tel:[phone] Referring Provider: Malcolm Boateng, [address] [place] [address], [place], [address]. tel:[phone] [facility] Physician s, [address] [place], [address], [place] tel:[phone] [facility] cataract evaluation (chief complaint) Primary open-angle glaucoma, right eye, severe stagePrimary open-angle glaucoma, left eye, mild stageOther corneal scars and opacitiesUnspec ified amblyopia, right eyeAge-related nuclear cataract, left eyePtosis of eyelid, right Aug- 7 [place]. [address] [place], [place], [id number]. tel:[phone] Referring Provider: Malcolm Boateng, [address] [facility], [place], [address]. tel:[phone] [facility] Physician s, [address] [place], [address], [place] tel:[phone] [facility] f/u exam, postop (chief complaint) No Information Apr- 0- 4 [place]. [address] [place], [place], [id number]. tel:[phone] Referring Provider: Malcolm Boateng, [address] [place] [address], [address]. tel:[phone] [facility], [address] [place], [address], [place] tel:[phone] [facility] f/u exam, postop (chief complaint) No Information Mar- 4 [place]. [address] [place], [place], [id number]. tel:[phone] Specialist: Romero Martins, [address] [facility] [address], [place], [address]. tel:[phone] ng Provider: Malcolm Boateng, [address] [place] [address], [address]. tel:[phone] OFFICE/OUTPA TIENT VISIT, EST [facility], [address] [place], [address], [place] [phone] [facility] f/u exam, postop (chief complaint) No Information Mar- 4 [place]. [address] [place], [place], [id number]. tel:[phone] Referring Provider: Malcolm Boateng, [address] [place] [address], [address]. tel:[phone] [facility] Physician s, [address] [place], [address], [place] tel:[phone] [facility] 2 wk s/p phaco/trab (chief complaint) No Information Mar- 4 [place]. [address] [place], [place], [id number]. tel:[phone] Referring Provider: Malcolm Boateng, [address] [place] [address], [address]. tel:[phone] [facility], [address] [place], [address], [place] tel:[phone] [facility] f/u exam, postop (chief complaint) No Information 4 Javier Chase. [address] [place], [place], [id number]. tel:[phone] Referring Provider: Malcolm Boateng, [address] [place] [address], [address]. tel:[phone] [facility] Physician s, [address] [place], [address], [place] tel:[phone] [facility] f/u exam, postop (chief complaint) No Information 4 [place]. [address] [place], [place], [id number]. tel:[phone] Referring Provider: Malcolm Boateng, [address] [place] [address], [address]. tel:[phone] [facility] Physician s, [address] [place], [address], [place] tel:[phone] [facility] 4 day glaucoma trab post op exam (chief complaint) No Information 4 [place]i. [facility] [place], [place], [id number]. tel:[phone] Referring Provider: Malcolm Boateng, [address] [place] [address], [address]. tel:[phone] [facility] Physician s, [address] [place], [address], [place] [phone] [facility] f/u exam, postop (chief complaint) No Information 4 [place]. [address] [place], [place], [id number]. tel:[phone] Referring Provider: Malcolm Boateng, [address] [place] [address], [address]. tel:[phone] [facility] Physician s, [address] [place], [address], [place] tel:[phone] [facility] f/u exam, postop (chief complaint) No Information 4 [place]. [address] [place], [place], [id number]. tel:[phone] Referring Provider: Malcolm Boateng, [address] [place] [address], [place], [address]. tel:[phone] [facility] Physician s, [address] [place], [address], [place] tel:[phone] [facility] No Information Jan-1 0-201 4 Javier Chase. [address] [place], [place], [id number]. tel:[phone] Referring Provider: Malcolm Boateng, [address] [place] [address], [place], [address]. tel:[phone] OFFICE/OUTPA TIENT VISIT, EST [facility], [address] [place], [address], [place] tel:[phone] [facility] No Information Jan-0 5-201 4 Suresh Stovall. [address] [place], [place], [id number], [place]. tel:[phone] Referring Provider: Christi Bolanos, [address] [place], [address]. tel:[phone] [facility] Physician s, [address] [place], [address], [place] tel:[phone] [facility] No Information Jan-0 3-201 4 Susan Barraza. [address] [place], [place], [id number]. tel:[phone] Referring Provider: Malcolm Boateng, [address] [facility], [place], [address]. tel:[phone] [facility] Physician s, [address] [place], [address], [place] tel:[phone] [facility] No Information Dec-3 0-201 4 Susan Barraza. [address] [place], [place], [id number]. tel:[phone] Referring Provider: Malcolm Boateng, [address] [place], [address]. tel:[phone] [facility], [address] [place], [address], [place] tel:[phone] [facility] Carter No Information 4 Susan Barraza. [address] [place], [place], [id number]. tel:[phone] Referring Provider: Malcolm Boateng, [address] [facility], [place], [address]. tel:[phone] [facility], [address] [place], [address], [place] tel:[phone] [facility] Carter No Information 4 Susan Barraza. [address] [place], [place], [id number]. tel:[phone] Referring Provider: Malcolm Boateng, [address] [facility], [place], [address]. tel:[phone] [facility], [address] [place], [address], [place] tel:[phone] [facility] No Information 4 Susan Barraza. [address] [place], [place], [id number]. tel:[phone] Referring Provider: Malcolm Boateng, [address] [facility], [place], [address]. tel:[phone] [facility], [address] [place], [address], [place] tel:[phone] [facility] No Information 4 [facility]. [address] [place], [place], [id number], [place]. tel:[phone] Referring Provider: Christi Bolanos, [address] [place], [address]. tel:[phone] [facility], [address] [place], [address], [place] tel:[phone] [facility] No Information 4 Susan Barraza. [address] [facility], [place], [place], [id number]. tel:[phone] Referring Provider: Malcolm Boateng, [address] [facility], [place], [address]. tel:[phone] Family History Family Member Type Diagnosis Age [...] disease Payers Payer name Insurance type Covered republican ID Authoriza ticaleb(s) Medicare [place] MB [id number] [facility] Healthcare Supplement [id number] CI [id number] Social History Type Description Quantity Date Captured Comments Sex Female Smoking Status No Information Chief Complaint And Reason For Visit No Information Reason For Referral Reason For Referral No Information Plan Of Treatment Date Type Action Status Referral Ordered: Romero Martins -Internal Medicine (related to Blepharitis of upper and lower eyelids of both eyes, unspecified type) ordered Referral Referred To: Romero Martins [address] [place] [address] [phone] Ordered: Referrals: Internal Medicine. Romero Martins. Follow-up [...] and comes & goes. She states it [id number] after her last visit.Meds: Pt is complaint, [...] watery. Karlos was [facility] on [facility] and states that since then she [...] Impression/Plan Impression/Plan Impression/Plan Impression/Plan Impression/Plan Impression/Plan - Return - 4 months with Christi Davis MD for [facility] and IOP check. Related to See impression details - Glaucoma is stable . Continue any current medications. Monitor for progression with IOP, visual field and ancillary testing.james pf qam [facility]going [facility] for 2 monthsiop check 4 monthsdilated exam 8 monthslid hygiene care (spray)call madan if eye becomes red, pain or change in vision Related to See impression details - Return - 4 months with Christi Davis MD for IOP check & visual field and Gonioscopy. Related to See impression details - Glaucoma [...] exam. Related to See impression details - s/p [...] check. Related to See impression details - doing great s/p phaco/iol/trabeculectomy od, phaco/iol/iStent oscontinue james (pf) qam os and artificial tears prn ouPt wants referral to new optom Related to See impression details - Return - 2-3 wks p ost op with Dr. Davis Related to See impression details - pt [...] check. Related to See impression details - Post [...] 4,3,2,1,0 Related to See impression details - Return - next avai lable week(s) with Christi Davis MD for surgical procedure. Related to See impression details - IOP [...] 2.14.17. Related to See impression details - Pt [...] then Related to See impression details - Return in PRN prn with Christi Davis MD Related to See impression details - s/p phaco/trab od, doing well off all gtts od!Consider sms consult for long-standing diplopia, strabismusReturn care to Dr. Blackburn. See him in 2 months. Related to See impression details - Return in 10 day(s ) with Christi Davis MD for [facility], IOP check ou Related to See impression details - doing well. Off al l gtts od except for weekly pf and lubricants. May need additional laser suture lysis down the road as bleb is small but want to avoid hypotony. Additional suture removal should not affect refraction.OK to get refraction with Dr. Boateng now before patient goes out of town.Recheck ou on Oct 10. Related to See impression details - Return in 3 day(s) with Christi Davis MD for post op exam Related to See impression details - bleb trying to sca rmay need lsl # 2 at next visitcsm Related to See impression details - possible steroid r esponsedoes respond to dpslow taper, change durezol to pf 2,1, weekly then 2 times/wk for 1 wk then 1time/wk then d/c Related to See impression details - Return in 2 week(s ) with Christi Davis MD for post op exam Related to See impression details - restart durezol qd OD/ Continue timoptic ocudose bid OS/zioptan qhs OS/ trusopt bid OS/refresh prn ouGoing to [place] for 2 weeksPt has vigamox - call if any redness/pain/ change in vision recheck in 2 weeks Related to See impression and plan - Return in 2 week(s ) with KAYLEEG for [facility], IOP check Related to See impression and plan - d/c vigamoxtaper d urezol 2,1,0 weeklycontinue gtts in osok to go up to [place], restart vigamox and call madan if eye [...] soon Related to See impression details - Return in 1 week(s ) with Christi Davis MD for post op exam Related to See impression details - change durezol 3/0 , vigamox 3/0, gregory 1/0, zioptan 0/1, trusopt 0/2, timoptic 0/2, refresh prn. BCL put in today. Acuvue oasys 14.0 Related to See impression details - Return in 3-4 day( s) with [...] os/timoptic bid OSsame precautions/shield at qhs/no lifting-bendingSee LJG next week Related to See impression: general plan - Subconjunctival bl [...] t o See impression: general plan - PRIM OPEN [...] od Related to See impression: general plan - Return in next vineet ilable week(s) with Christi Davis MD for IOP check & visual field and OCT. Related to See impression: general plan Assessments Type Assessment Date No Information Patient Care Teams Name Effective Dates (start - stop) Status Members No Information
[2024-12-22] VITALS (25 sets, daily range): BP systolic 147–182; BP diastolic 82–104; PULSE 57–82; RESP 11–42; TEMP 36.4–36.7; O2SAT 96–100; BMI 24.5
--- OUTSIDE RECORDS SUMMARY | 2024-12-22 11:41 | XMS_ITS | Referral Summary ---
Author Organization [facility] Address [address] [place] [address] Care Team Providers Care Rn Paralegal Name Role Phone Unknown, Primary Care Provider [facility], Unknown Unavailable Unavailable Allergies Active Allergy Reactions Criticality Noted Date Comments Meperidine 03/14/2019 Hydrochlorothiazide Other 12/03/2009 URINATE ALL ELECTROLYTES Electrolyte distrubance Sertraline Diarrhea,Other 01/07/2010 Electrolytes go out Social History Tobacco Use Types Packs/Day Years Used Date Smoking Tobacco: Never Assessed Comments Unknown Sex and Gender Information Value Date Recorded Sex Assigned at Not on file Legal Sex Female 8:59 AM CDT Gender Identity Not on file Sexual Orientation Not on file Last Filed Vital Signs Vital Sign Reading Time Taken Comments Blood Pressure 166/81 03/14/2019 9:24 AM CDT Pulse 71 03/14/2019 9:23 AM CDT Temperature 36.7 C (98.1 F) 03/14/2019 9:23 AM CDT Respiratory Rate 20 03/14/2019 9:23 AM CDT Oxygen Saturation 98% 03/14/2019 9:23 AM CDT Inhaled Oxygen Concentration - - Weight 68 kg (150 lb) 03/14/2019 9:23 AM CDT Height - - Body Mass Index - - Plan of Treatment Not on file Insurance MEDICARE PART A & B [facility] AARP/MEDICARE SUPPLEMENT Care Teams Rn Paralegal Relationship Specialty Start Date End Date Unknown, NO ADDRESS/PHONE/FAX AFFILIATED PCP - General 03/14/19 Clinic, Unknown [place] PCP - [facility] Care Clinic 03/14/19
--- OUTSIDE RECORDS SUMMARY | 2024-12-22 11:41 | XMS_ITS | Clinical Summary ---
Author Organization [facility] Address [address] [place] [address] Care Team Providers Care Showroom Executive Director Name Role Phone Unknown, Primary Care Provider [facility], Unknown Unavailable Unavailable Allergies Active Allergy [...] Health Maintenance Due Date Last Done Comments Colonoscopy 1945 Hepatitis C Screening 1945 Lipid Screening 1946 Depression Assessment (PHQ-2) 1947 Adult Tetanus Booster 1965 Pneumococcal 50+ Years (1 of 1 - PCV) 1996 Yearly Review of HCD 1996 Zoster Vaccine (2 of 3) 06/10/2009 04/15/2009 Osteoporosis Screening 12/26/2020 12/26/2018 RSV Vaccines (1 - 1-dose 75+ series) 2021 COVID-19 Vaccine (2023-2 5 season) 2024 Influenza Vaccine (Season Ended) 2025 Meningococcal B Vaccine Aged Out No l onger eligible based on patient's age to complete this topic Insurance MEDICARE PART A & B [facility] AARP/MEDICARE SUPPLEMENT Care Teams Showroom Executive Director Relationship Specialty Start Date End Date Unknown, NO ADDRESS/PHONE/FAX AFFILIATED PCP - General 03/14/19 Clinic, Unknown [place] PCP - Primary Care Clinic 03/14/19
--- OUTSIDE RECORDS SUMMARY | 2024-12-22 11:41 | XMS_ITS | Clinical Summary ---
Author Organization [facility] Address [address] [place] [id number] Care Team Providers Care Banquet Chef Name Role Phone Pcp, No Primary Care Provider Unavailabl e Allergies Active Allergy Reactions Criticality Noted Date Comments Ciprofloxacin Confusion,Other - Describe In Comment Field Low 12/26/2018 Dizziness Brain Fog Meperidine Other - Describe In Comment Field,Fever High 12/03/2009 shaking Chills, shaking Sertraline Diarrhea,Other - Describe In Comment Field High 01/07/2010 Electrolytes go out Burning while taking to swallow Medications alendronate (FOSAMAX) 70 mg tablet TAKE 1 TABLET BY MOUTH ONCE A WEEK IN THE MORNING ON AN EMPTY STOMACH WITH FULL GLASS OF WATER DO NOT LIE DOWN FOR 1 HOUR Active buPROPion (WELLBUTRIN SR) 100 mg Sustained-Relea se tablet Take 100 mg by mouth two [...] Tobacco: Never Tobacco Cessation:Counseling Given: Not Answered Comments Unknown Sex and Gender Information Value Date Recorded Sex Assigned at Not on file Legal Sex Female 9:14 AM DOOR OPENER Gender Identity Not on file Sexual Orientation [...] age 18+ 1964 Hepatitis C screening for age 18-79 1964 Tetanus booster 1966 Pneumococcal series for age 50+ (1 of 1 - PCV) 1996 Zoster (shingles) series for age 50+ (1 of 2) 1996 DEXA/DXA scan for age 65+ 2011 Medicare Wellness for age 65+ 2011 RSV vaccine for adults or (1 - 1-dose 75+ series) 2021 COVID-19 vaccine series ( season) 2024 04/01/2022, 11/03/2021, 04/06/2021, Additional history exists Influenza Vaccine (Season Ended) 2025 Hepatitis B series for 19+ Aged Out N o longer eligible based on patient's age to complete this topic Insurance MEDICARE [place] ONLY [facility] [place] ONLY Care Teams Banquet Chef Relationship Specialty Start Date End Date Pcp, No . PCP - General 07/14/23
--- NOTE | 2024-12-22 12:13 | ED.GENADULT ---
HPI - General Adult General Time Seen by Provider: 12:13 Date Seen: 12/22/24 Chief complaint: Hypertension Stated complaint: BP high, feels dizzy and out of sorts Time Seen by Provider: 12/22/24 12:12 Source: patient and RN notes reviewed Mode of arrival: ambulatory Limitations: no limitations History of Present Illness HPI narrative: Shahid is a 79-year-old female presenting to the ER with complaint of feeling dizzy or off balance. She woke this morning just not feeling right. She felt like she had hang onto the evans to ambulate. She does not describe this as a sense of spinning. She does feel that her left eye a maybe is a little more blurry today but no pain with it. She has amblyopia and largely sees out of the left eye, has decreased vision of the right. She also has glaucoma affecting her vision. She has had some dizziness in the past for which she has had treatments for but this is seemingly bit different for her. She is not describing any vertigo or spinning sensation. She has no headache. She has not noticed any incoordination of her arms or legs, she just feels unsteady in her gait in attempting to ambulate. No numbness or tingling. She has not noted any chest pain or palpitations. She has not been sick with anything. While lying here, she does note that her shoulders feel tight in both of them across her back. She has a history of osteoporosis, monoclonal gammopathy of unknown significance, situational anxiety, glaucoma, hyperlipidemia, hypertension, hypothyroidism, interstitial cystitis. Medications reviewed. Related Data Home Medications ?Medication ?Instructions ?Recorded ?Confirmed dorzolamide-timolol (PF) 2 %-0.5 % 1 drp ophthalmic (eye) BID 06/27/23 12/22/24 eye drops in a dropperette latanoprost 0.005 % eye drops 1 drp ophthalmic (eye) HS 06/27/23 12/22/24 rosuvastatin 20 mg tablet 20 mg PO HS 12/22/24 12/22/24 Previous Rx's ?Medication ?Instructions ?Recorded alendronate 70 mg tablet 70 mg PO QWEEK #12 tabs 09/10/24 bupropion HCl 100 mg tablet,12 hr 100 mg PO BID #180 tabs 09/10/24 sustained-release levothyroxine 112 mcg tablet 112 mcg PO DAILY #90 tabs 09/10/24 (Synthroid) valsartan 160 mg tablet 160 mg PO DAILY #90 tabs 09/20/24 Allergies Allergy/AdvReac Type Severity Reaction Status Date / Time meperidine (From Demerol) Allergy Severe Chills Verified 11/06/24 08:21 hydrochlorothiazide Allergy Intermediate other Verified 11/06/24 08:21 sertraline (From Zoloft) Allergy Intermediate other Verified 11/06/24 08:21 ciprofloxacin (From Cipro) Allergy Mild Confusion Verified 11/06/24 08:21 Review of Systems Status of ROS: Reports: 6 or more systems reviewed and unremarkable except as noted in History and below [facility] Medical History History of diverticulitis ?Z87.19 - Personal history of other diseases of the digestive system (ICD-10) Surgical History History of lumbar surgery ?Z98.890 - Other specified postprocedural states (ICD-10) History of cataract surgery ?Z98.49 - Cataract extraction status, unspecified eye (ICD-10) Status post glaucoma surgery ?Z98.83 - Filtering (vitreous) bleb after glaucoma surgery status (ICD-10) Social History What is your current living situation?: I presently have a place to live Problems where you live: no known problems In the past 12 months, utilities in danger of being shut off: no In past 12 months, lack of transportation kept you from medical appts, meetings, work, or getting things needed for daily living: no In the past 12 mos, have been you worried that your food would run out before you had money to buy more?: never true In the past 12 mos, the food you bought just didn't last and you didn't have money to buy more?: never true Smoking Status: Never smoker Do you use any of these nicotine containing products: None Second hand tobacco smoke exposure: No How often do you have a drink containing alcohol: never AUDIT-C Alcohol total score: 0 Non-prescribed substance use: denies use How often does anyone, including family, friends and others, physically hurt you: never How often does anyone, including family, friends and others, insult or talk down to you: never How often does anyone, including family, friends and others, threaten you with harm: never How often does anyone, including family, friends and others, scream or curse at you: never service: No Exam Const: Vital Signs, click to edit/add: Vital Signs - 24 hr 12/22/24 11:46 12/22/24 12:21 12/22/24 13:15 Temperature 97.5 F L Pulse Rate 72 Pulse Rate [Pulse Oximeter] 66 Respiratory Rate 18 23 Blood Pressure Blood Pressure [Ri ght Upper Arm] 181/93 H Pulse Oximetry 98 100 98 Oxygen Delivery Me thod Room Air 12/22/24 13:17 12/22/24 13:30 12/22/24 13:32 Temperature Pulse Rate 71 65 66 Pulse Rate [Pulse Oximeter] Respiratory Rate 15 16 23 Blood Pressure 176/90 H 158/84 H Blood Pressure [Ri ght Upper Arm] Pulse Oximetry 100 97 97 Oxygen Delivery Me thod 12/22/24 13:33 12/22/24 13:45 12/22/24 14:00 Temperature Pulse Rate 66 64 61 Pulse Rate [Pulse Oximeter] Respiratory Rate 21 24 11 L Blood Pressure Blood Pressure [Ri ght Upper Arm] Pulse Oximetry 99 98 96 Oxygen Delivery Me thod 12/22/24 14:02 12/22/24 14:21 12/22/24 14:30 Temperature Pulse Rate 61 61 Pulse Rate [Pulse Oximeter] Respiratory Rate 13 42 H 18 Blood Pressure 149/82 H Blood Pressure [Ri ght Upper Arm] Pulse Oximetry 97 98 Oxygen Delivery Me thod Room Air 12/22/24 14:35 12/22/24 14:36 12/22/24 14:43 Temperature Pulse Rate 62 61 57 L Pulse Rate [Pulse Oximeter] Respiratory Rate 16 15 12 Blood Pressure 154/92 H Blood Pressure [Ri ght Upper Arm] Pulse Oximetry 98 98 99 Oxygen Delivery Me thod 12/22/24 14:45 12/22/24 15:00 12/22/24 15:02 Temperature Pulse Rate 60 64 64 Pulse Rate [Pulse Oximeter] Respiratory Rate 13 12 14 Blood Pressure 166/88 H Blood Pressure [Ri t Upper Arm] Pulse Oximetry 99 99 99 Oxygen Delivery Me thod Room Air 12/22/24 15:15 12/22/24 15:30 12/22/24 15:32 Temperature Pulse Rate 61 64 62 Pulse Rate [Pulse Oximeter] Respiratory Rate 17 14 12 Blood Pressure 181/102 H Blood Pressure [Ri ght Upper Arm] Pulse Oximetry 98 99 100 Oxygen Delivery Me thod Sarah is a 79-year-old female that is alert, interactive, no apparent distress. She is lying comfortably in the bed in exam room 5. She has glasses on, seems to have conjugate gaze on gross confrontation, has no visual field cuts that I am able to surmise, especially left eye. Symmetrical facial function, speech normal. Neck is supple, no adenopathy, no jugular venous distension, no masses, no thyromegaly masses or nodules. Lungs are clear, good air entry, no wheezing or crackles, no tachypnea, no accessory muscle use. CV regular rate and rhythm, no murmur, normal S1-S2, no S3-S4. Abdomen is soft, nontender, nondistended, no organomegaly, rebound or guarding or any masses noted. Strength is 5/5 and symmetric throughout hands and upper extremities, feet and lower extremities. Able to lift each leg off the bed. She has no arm drift, normal rapid alternating finger movements, normal finger to nose. Note no dysmetria, her end target to her nose is perfect on each finger of both hands. Documenting provider has reviewed patient's vital signs: yes Course Reevaluation(s) Time of Reevaluation #1: 14:57 Reevaluation #1: Patient was ambulated, can ambulate but she states her gait feels far more unsteady than it normally is. She states she feels that she is to the point that she would not leave the house today. She really does not feel steady. She did ambulate slowly and independently here but is subjectively telling us that this is far worse than what she normally feels at home. Did talk to Radiology, they will see if they can make any capacity for her to have an MRI of her brain before Tuesday. In the meantime, patient is going to need to stay, we can initiate some meclizine to see if this might help if it is peripheral. I unfortunately cannot fully clear this patient from cerebrovascular disease without the brain MRI. Will talk to the hospitalist. Consultations Consultation #1: Spoke with Dr. Lloyd from stroke Neurology at [place]. He agrees that this is very likely possibly multifactorial or peripheral vertigo equivalent. We will get the patient up and ambulate her, if she seems to be a baseline than likely discharge to home with follow-up outpatient with her primary. Otherwise, if her gait is significantly off, will need to try to obtain an MRI, may have to wait until Tuesday morning for that but she would come into the hospital and stroke Neurology would see her tomorrow. We will update them if she stays. Patient updated on plan, will see how she does ambulating. Time: 14:44 Consultation #2: Have talked to the hospitalist Dr. Coyle, he will be down shortly to discuss this patient's history, will decide if he will accept patient. After review of case, he does agree to accept patient. Did let him know that I did order an 81 mg aspirin and 25 mg of meclizine. Time: 14:59 Vital Signs Vital signs: Initial Vital Signs Temperature 97.5 F L 12/22/24 11:46 Temperature Source Temporal Artery Scan 12/22/24 11:46 Pulse Rate 66 12/22/24 11:46 Respiratory Rate 18 12/22/24 11:46 Blood Pressure 181/93 H 12/22/24 11:46 Blood Pressure Mean 122 H 12/22/24 11:46 Pulse Oximetry 98 12/22/24 11:46 Oxygen Delivery Method Room Air 12/22/24 11:46 Vital Signs Temperature 97.5 F L 12/22/24 11:46 Pulse Rate 66 12/22/24 11:46 Respiratory Rate 18 12/22/24 11:46 Blood Pressure 181/93 H 12/22/24 11:46 Pulse Oximetry 98 12/22/24 11:46 Oxygen Delivery Method Room Air 12/22/24 11:46 Temperature 97.5 F L 12/22/24 11:46 Pulse Rate 62 12/22/24 15:32 Respiratory Rate 12 12/22/24 15:32 Blood Pressure 181/102 H 12/22/24 15:32 Pulse Oximetry 100 12/22/24 15:32 Oxygen Delivery Method Room Air 12/22/24 15:02 Medications Administered Medications: Discontinued Medications Generic Name Dose Route Start Last Admin Trade Name Valerie PRN Reason Stop Dose Admin Aspirin 81 mg 12/22/24 15:25 12/22/24 15:35 Aspirin 81 Mg Tablet Ec PO 12/22/24 15:26 81 mg DAILY ONE Administration Meclizine HCl 25 mg 12/22/24 15:12 12/22/24 15:16 Meclizine Hcl 25 Mg Tablet PO 12/22/24 15:13 25 mg ONCE ONE Administration Medical Decision Making Lab Data Labs: Lab Results 12/22/24 12/22/24 Range/Units 12:55 14:32 WBC 4.52 (4.50-11.00) K/uL RBC 4.27 (4.00-5.20) m/uL Hgb 13.3 (12.0-16.0) gm/dL Hct 40.1 (33.0-51.0) % MCV 94 (80-100) fL MCH 31 (26-34) pg MCHC 33 (32-36) gm/dL RDW Coeff of Aniyah 13.1 (11.5-15.5) % Plt Count 239 (140-440) K/uL Neut % (Auto) 58.9 (42.0-72.0) % Lymph % (Auto) 27.9 (20-44) % Kane % (Auto) 10.8 (0.0-11.0) % Eos % (Auto) 1.3 (0.0-7.0) % Baso % (Auto) 0.9 (0.0-3.0) % Neut # (Auto) 2.66 (1.7-7.0) K/uL Lymph # (Auto) 1.26 (0.90-2.90) K/uL Kane # (Auto) 0.50 (0.00-0.90) K/UL Eos # (Auto) 0.06 (0.00-0.50) K/uL Baso # (Auto) 0.04 (0.00-0.30) K/uL Abs Immat Gran (auto) 0.01 (0.00-0.30) K/uL Imm/Tot Granulo (auto) 0.2 % ESR 5 (2-20) mm/hr Sodium 137 (135-149) mmol/L Potassium 3.8 (3.6-5.1) mmol/L Chloride 102 (96-114) mmol/L Carbon Dioxide 26 (20-32) mmol/L Anion Gap 9 (7-15) mEq/L BUN 20 (7-30) mg/dL Creatinine 0.8 (0.5-1.5) mg/dL Estimated Creat Clear 50.14 Estimated GFR 75 ml/min Glucose 86 (60-115) mg/dL Lactate 0.9 (0.5-1.9) mmol/L Calcium 9.6 (8.4-10.6) mg/dL Magnesium 2.1 (1.5-2.6) mg/dL Total Bilirubin 0.4 (0.1-1.5) mg/dL AST 24 (12-35) U/L ALT 16 (4-35) U/L Alkaline Phosphatase 51 (40-150) U/L Troponin I < 0.01 (0.01-0.04) ng/mL C-Reactive Protein < 0.5 L (0.5-1.0) mg/dL NT-Pro-B Natriuret Pep 267 (See Note) pg/mL Total Protein 7.1 (6.0-8.3) g/dL Albumin 4.3 (3.3-5.0) g/dL TSH 0.755 (0.270-4.200) uIU/mL Urine Color Yellow (Yellow) Urine Appearance Clear (Clear) Urine pH 7.0 (5.0-8.5) Ur Specific [place] 1.010 (1.000-1.030) Urine Protein Negative (Negative) Urine Glucose (UA) Negative (Negative) Urine Ketones Negative (Negative) Urine Blood Negative (Negative) Urine Nitrite Negative (Negative) Urine Bilirubin Negative (Negative) Urine Urobilinogen 0.2 (0.2-1.0) Ur Leukocyte Esterase 1+ A (Negative) Urine RBC 0-2 (0-2) Urine WBC 5-10 A (0-5) Ur Squamous Epith Cells None (None-Few) Urine Bacteria None (None) Imaging Data CT scan - head: Attestation: I have reviewed the pertinent imaging results. Radiologist's impression: Patient: SARAH ANDERSON Facility:?[facility] Patient ID:?[id number] Site Patient ID:?[id number]. Site :?1945 Study:?CT-Head WITHOUT NON ACUTE-12/22/2024 1:17:34 PM Ordering Physician:José Manuel Hooks Final Report: INDICATION: Dizziness and imbalance. COMPARISON: None. TECHNIQUE: CT of the brain / head without intravenous contrast. Multiplanar axial, coronal, and sagittal reformats were reconstructed. FINDINGS: No intracranial hemorrhage. Age-related parenchymal volume loss. No acute or subacute cortically based infarct. Scattered white matter hypodensities may be related to chronic microvascular ischemia. Atherosclerosis. No mass or mass effect. Normal ventricles. No skull fractures. No worrisome focal bone lesion. IMPRESSION: No acute intracranial findings. Age-related parenchymal volume loss and white matter hypodensities typically seen with chronic small vessel disease. Please note that all CT scans at this facility use dose modulation, iterative reconstruction, and/or weight-based dosing when appropriate to reduce radiation dose to as low as reasonably achievable. Dictated by Ember Mejia MD @ 12/22/2024 1:47:33 PM (Electronic Signature) CT- Other: Attestation: I have reviewed the pertinent imaging results. Radiologist's impression: Patient: SARAH ANDERSON Facility:?[facility] Patient ID:?[id number] Site Patient ID:?[id number]. Site :?1945 Study:?CT-Head Angio 95CC ISOVUE 370 NON ACUTE-12/22/2024 1:18:22 PM Ordering Physician:José Manuel Hooks Preliminary Report: COMPARISON: Same-day head CT TECHNIQUE: : CT angiogram of the head and neck with IV contrast. Multiplanar and MIP reformats are included to improve detection of arterial pathology. IV contrast: 95 mL Isovue 370 IMPRESSION: CTA head: Small caliber left V4. Dominant right vertebral artery. No large vessel occlusion or significant aneurysm. CTA neck: No sign of dissection or critical stenosis. Dictated by Ember Mejia MD @ 12/22/2024 1:53:37 PM Read by:?Ember Mejia MD @12/22/2024 1:53:40 PM ECG Data Attestation: I personally reviewed and interpreted this ECG as follows: (Sinus bradycardia, 59 beats per minute. No evidence arrhythmia, ischemia or infarct. There is artifact in V3 and V5.) Discharge Plan Discharge Clinical Impression: Dizziness, Imbalance Patient Disposition: Admitted As Observation
--- NOTE | 2024-12-22 12:21 | CRLHL7_ITS ---
For Patients: As a result of the Century Cures Act, medical imaging exams and procedure reports are released immediately into your electronic medical record. You may view this report before your referring provider. If you have questions, please contact your health care provider. INDICATION: Acute neurological deficit. COMPARISON: None available. TECHNIQUE: CTA neck with contrast bolus tracking, 3D angiographic rendering using maximum intensity projection (MIP) and images permanently archived. FINDINGS: The origins of the great vessels are patent. There is no significant carotid artery stenosis or dissection. There is no significant vertebral artery stenosis or dissection. IMPRESSION: Patent cervical arterial vasculature without hemodynamically significant stenosis. Please note that all CT scans at this facility use dose modulation, iterative reconstruction, and/or weight-based dosing when appropriate to reduce radiation dose to as low as reasonably achievable. Dictated by Iftikhar Valdez MD @ 12/22/2024 9:50:49 PM (Electronically Signed)
--- NOTE | 2024-12-22 12:21 | CRLHL7_ITS ---
For Patients: As a result of the Century Cures Act, medical imaging exams and procedure reports are released immediately into your electronic medical record. You may view this report before your referring provider. If you have questions, please contact your health care provider. CLINICAL HISTORY: Acute neurological deficit. TECHNIQUE: Standard helical CT image acquisition through the head following the administration of intravenous contrast was performed. 3D and MIP reconstructions were performed at a separate workstation and permanently archived. COMPARISON: None available. FINDINGS: No intracranial proximal large vessel occlusion or flow-limiting luminal stenosis. No evidence of cerebral aneurysm. No findings to suggest an arterial-venous shunting lesion. IMPRESSION: No intracranial proximal large vessel occlusion, flow-limiting luminal stenosis, or cerebral aneurysm. Please note that all CT scans at this facility use dose modulation, iterative reconstruction, and/or weight-based dosing when appropriate to reduce radiation dose to as low as reasonably achievable. Dictated by Iftikhar Valdez MD @ 12/22/2024 9:52:35 PM (Electronically Signed)
--- NOTE | 2024-12-22 12:22 | CRLHL7_ITS ---
For Patients: As a result of the Century Cures Act, medical imaging exams and procedure reports are released immediately into your electronic medical record. You may view this report before your referring provider. If you have questions, please contact your health care provider. INDICATION: Dizziness and imbalance. COMPARISON: None. TECHNIQUE: CT of the brain / head without intravenous contrast. Multiplanar axial, coronal, and sagittal reformats were reconstructed. FINDINGS: No intracranial hemorrhage. Age-related parenchymal volume loss. No acute or subacute cortically based infarct. Scattered white matter hypodensities may be related to chronic microvascular ischemia. Atherosclerosis. No mass or mass effect. Normal ventricles. No skull fractures. No worrisome focal bone lesion. IMPRESSION: No acute intracranial findings. Age-related parenchymal volume loss and white matter hypodensities typically seen with chronic small vessel disease. Please note that all CT scans at this facility use dose modulation, iterative reconstruction, and/or weight-based dosing when appropriate to reduce radiation dose to as low as reasonably achievable. Dictated by Ember Mejia MD @ 12/22/2024 1:47:33 PM (Electronically Signed)
[2024-12-22 13:04] LABS: Basophils Absolute Auto 0.04 K/uL (0.00-0.30); Basophils Percent Auto 0.9 % (0.0-3.0); Eosinophils Absolute Auto 0.06 K/uL (0.00-0.50); Eosinophils Percent Auto 1.3 % (0.0-7.0); Hematocrit 40.1 % (33.0-51.0); Hemoglobin* 13.3 gm/dL (12.0-16.0); Immature Granulocytes Abs Auto 0.01 K/uL (0.00-0.30); Immature Granulocytes Pct Auto 0.2 %; Lactate* 0.9 mmol/L (0.5-1.9); Lymphocytes Absolute Auto 1.26 K/uL (0.90-2.90); Lymphocytes Percent Auto 27.9 % (20-44); Mean Corpuscular HGB Conc 33 gm/dL (32-36); Mean Corpuscular Hemoglobin 31 pg (26-34); Mean Corpuscular Volume 94 fL (80-100); Monocytes Percent Auto 10.8 % (0.0-11.0); Neutrophils Absolute Auto 2.66 K/uL (1.7-7.0); Neutrophils Percent Auto 58.9 % (42.0-72.0); Platelet Count* 239 K/uL (140-440); RDW Coefficient of Variation % 13.1 % (11.5-15.5); Red Blood Count 4.27 m/uL (4.00-5.20); White Blood Count* 4.52 K/uL (4.50-11.00)
[2024-12-22 13:08] LABS: Slide Review Reflex No
[2024-12-22 13:34] LABS: Albumin* 4.3 g/dL (3.3-5.0); Chloride* 102 mmol/L (96-114); Sodium* 137 mmol/L (135-149)
[2024-12-22 13:35] LABS: Potassium* 3.8 mmol/L (3.6-5.1)
[2024-12-22 13:37] LABS: Alanine Aminotransferase* 16 U/L (4-35); Anion Gap 9 mEq/L (7-15); Aspartate Amino Transferase* 24 U/L (12-35); Blood Urea Nitrogen* 20 mg/dL (7-30); Carbon Dioxide* 26 mmol/L (20-32); Creatinine* 0.8 mg/dL (0.5-1.5); Est. Creatinine Clearance* 50.14; Estimated Glomerular Filt Rate 75 ml/min
[2024-12-22 13:38] LABS: Alkaline Phosphatase* 51 U/L (40-150); Bilirubin Total* 0.4 mg/dL (0.1-1.5); Calcium* 9.6 mg/dL (8.4-10.6); Glucose* 86 mg/dL (60-115); Magnesium* 2.1 mg/dL (1.5-2.6); Total Protein* 7.1 g/dL (6.0-8.3)
[2024-12-22 13:50] LABS: C Reactive Protein* < 0.5 mg/dL (0.5-1.0); NT Pro B Type NatriureticPept* 267 pg/mL (See Note); Troponin I* < 0.01 ng/mL (0.01-0.04)
[2024-12-22 14:09] LABS: TSH With Reflex to FT4* 0.755 uIU/mL (0.270-4.200)
[2024-12-22 14:23] LABS: Erythrocyte SedimentationRate* 5 mm/hr (2-20)
[2024-12-22 14:42] LABS: Appearance Urine Clear (Clear); Bilirubin Urine Negative (Negative); Blood Urine Negative (Negative); Color Urine Yellow (Yellow); Glucose Urine Negative (Negative); Ketones Urine Negative (Negative); Leukocyte Esterase Urine 1+ (Negative); Nitrite Urine Negative (Negative); Protein Urine Negative (Negative); Urobilinogen Urine 0.2 (0.2-1.0)
[2024-12-22 15:03] LABS: RBC Urine 0-2 (0-2)
[2024-12-22] MEDS: MECLIZINE HCL 25 MG TABLET PO (15:16)
[2024-12-22] MEDS: ASPIRIN 81 MG TABLET EC PO (15:35)
--- NOTE | 2024-12-22 18:34 | PM.IMHP1 ---
Assessment and Plan Assessment and plan (1) Imbalance: Problem comment: -chronic, longstanding problem addressed through physical therapy, exercises, and support and interventions from her rubber heel and sole press tender and event set up specialist -currently her sense is that the sensation she has had since the morning of 12/22/2024 is different than her usual problem -no obvious focal motor neurologic deficits on exam presently. Discussion with neurologist by our emergency department physician undertaken with neurologist recommending overnight observation, physical and occupational therapy assessment and recommendations, and obtain an MRI scan of the brain without contrast. Additionally, patient is not ordinarily on aspirin and neurologist has recommended initiation of aspirin 81 mg once daily. Recheck lipid panel in the morning. Rediscussed with neurologist after obtain results of MRI scan. 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 Most recent DEXA 06/15/22: Lowest T-score L distal forearm -2.7 (outside records indicate drug holiday from alendronate in 2019, restarted in 2020 due to decline), back on alendronate since 2020 Status: Chronic Plan 1. Reviewed impression with patient. Discussed recommendations as well. 2. Answered her questions to her satisfaction. 3. Patient agreeable with above stated plans and recommendations Total Time Spent Total Time Spent: 70 minutes Hospitalist- H&P: HPI History of Present Illness Date Seen: 12/22/24 Chief complaint: BP high, feels dizzy and out of sorts Narrative: Sarah West is a 79 year old woman who presents to the emergency department today complaining of increased sense of dizziness and being off balance. She has had chronic, longstanding complaint of balance concerns. She has worked with physical therapist and others to help deal with this. Additionally she works closely with her rubber heel and sole press tender and event set up specialist to adjust her prescriptions to address these different concerns. When she woke up this morning however she notice that she could hardly ambulate without holding on to furniture and evans. With her hands on furniture and evans she felt more confident in able to ambulate in her home. Denied any focal weakness of any some sort. Interestingly she notes that when her eyes are closed she does not feel as unsteady as when her eyes are open. Denies diplopia presently but notes that she has had diplopia in the past which was corrected with adjustment of her lenses. Has also had a sense of dizziness or imbalance in the past that was corrected with adjustment of her lenses for glasses. She is uncertain if this is related to a similar situation or if this is what she fears, a result of a stroke. Denies focal motor neurologic changes. No recent fever, rigors, diaphoresis. Denies any focal or localizing symptoms of infection. Review of Systems Status of ROS: Reports: 6 or more systems reviewed and unremarkable except as noted in History and below Medical Decision Making Medical Decision Making Code Status: Full resuscitation in event of cardiopulmonary demise Has patient completed a Health Care Directive: No During This Stay, Who Would You Like To Make Decisions For You In The Event You Are Unable To Make Them For Yourself?: Her primary contact is her friend, Leandra Brown, cell phone number [phone]. Her secondary contact is her daughter, Alberto West, cell phone number [phone]. [facility] Medical History Interstitial cystitis ?N30.10 - Interstitial cystitis (chronic) without hematuria (ICD-10) Hypothyroidism ?E03.9 - Hypothyroidism, unspecified (ICD-10) Essential hypertension ?I10 - Essential (primary) hypertension (ICD-10) Hyperlipidemia ?E78.5 - Hyperlipidemia, unspecified (ICD-10) Glaucoma ?H40.9 - Unspecified glaucoma (ICD-10) Situational anxiety ?F41.8 - Other specified anxiety disorders (ICD-10) MGUS (monoclonal gammopathy of unknown significance) ?D47.2 - Monoclonal gammopathy (ICD-10) Osteoporosis (2006) ?M81.0 - Age-related osteoporosis without current pathological fracture (ICD-10) Dizziness ?R42 - Dizziness and giddiness (ICD-10) Imbalance ?R26.89 - Other abnormalities of gait and mobility (ICD-10) History of diverticulitis ?Z87.19 - Personal history of other diseases of the digestive system (ICD-10) Surgical History History of lumbar surgery ?Z98.890 - Other specified postprocedural states (ICD-10) History of cataract surgery ?Z98.49 - Cataract extraction status, unspecified eye (ICD-10) Status post glaucoma surgery ?Z98.83 - Filtering (vitreous) bleb after glaucoma surgery status (ICD-10) Social History What is your current living situation?: I presently have a place to live Problems where you live: no known problems Problems where you live details: no known problem In the past 12 months, utilities in danger of being shut off: no In past 12 months, lack of transportation kept you from medical appts, meetings, work, or getting things needed for daily living: no In the past 12 mos, have been you worried that your food would run out before you had money to buy more?: never true In the past 12 mos, the food you bought just didn't last and you didn't have money to buy more?: never true Highest level of school completed/degree received: Bachelor's degree Smoking Status: Never smoker Do you use any of these nicotine containing products: None Second hand tobacco smoke exposure: No How often do you have a drink containing alcohol: monthly or less How often do you have six or more drinks on one occasion: Less than monthly AUDIT-C Alcohol total score: 2 Non-prescribed substance use: denies use Caffeine: Yes How often does anyone, including family, friends and others, physically hurt you: never How often does anyone, including family, friends and others, insult or talk down to you: never How often does anyone, including family, friends and others, threaten you with harm: never How often does anyone, including family, friends and others, scream or curse at you: never service: No Meds Home Medications and Allergies Home Medications ?Medication ?Instructions ?Recorded ?Confirmed ?Type dorzolamide-timolol (PF) 2 %-0.5 % 1 drp ophthalmic (eye) BID 06/27/23 12/22/24 History eye drops in a dropperette latanoprost 0.005 % eye drops 1 drp ophthalmic (eye) HS 06/27/23 12/22/24 History alendronate 70 mg tablet 70 mg PO QWEEK #12 tabs 09/10/24 12/22/24 Rx bupropion HCl 100 mg tablet,12 hr 100 mg PO BID #180 tabs 09/10/24 12/22/24 Rx sustained-release levothyroxine 112 mcg tablet 112 mcg PO DAILY #90 tabs 09/10/24 12/22/24 Rx (Synthroid) valsartan 160 mg tablet 160 mg PO DAILY #90 tabs 09/20/24 12/22/24 Rx rosuvastatin 20 mg tablet 20 mg PO HS 12/22/24 12/22/24 History Allergies Allergy/AdvReac Type Severity Reaction Status Date / Time meperidine (From Demerol) Allergy Severe Chills Verified 11/06/24 08:21 hydrochlorothiazide Allergy Intermediate other Verified 11/06/24 08:21 sertraline (From Zoloft) Allergy Intermediate other Verified 11/06/24 08:21 ciprofloxacin (From Cipro) Allergy Mild Confusion Verified 11/06/24 08:21 Exam Narrative: Exam Narrative: I 1st examined the patient in the emergency department and later on the hospital medical floor. She appears comfortable in no acute distress, nevertheless anxious. Friendly, articulate, cooperative. Alert and oriented x4. Vision and hearing are adequate. Dysconjugate gaze, chronic. No obvious spontaneous or inducible nystagmus. Midline nasal septum, dentition in fair repair. Neck is supple. Midline trachea. Normal thyroid. No head neck lymphadenopathy. Lungs are clear to auscultation. Heart tones with regular rhythm, normal S1-S2, without murmur, gallop, or rub. Abdomen with active bowel sounds, soft, nontender. Extremities without edema. No focal motor neurologic deficits. Normal rapid alternating movement of upper extremities and lower extremities. Normal [id number] testing bilateral upper extremities. Strength is normal and symmetric bilaterally in upper and lower extremities. Normal deep tendon reflexes in bilateral lower extremities. Sensation to light touch and proprioception normal in bilateral lower extremities. Able to transfer from supine to sitting and sitting to standing with subjective sensation of imbalance when she attempts to stand or walk. Const: Vital Signs, click to edit/add: Vital Signs - 24 hr 12/22/24 11:46 12/22/24 12:21 12/22/24 13:15 Temperature 97.5 F L Pulse Rate 72 Pulse Rate [Pulse Oximeter] 66 Respiratory Rate 18 23 Blood Pressure Blood Pressure [Le ft Arm] Blood Pressure [Ri ght Upper Arm] 181/93 H Pulse Oximetry 98 100 98 Oxygen Delivery Me thod Room Air 12/22/24 13:17 12/22/24 13:30 12/22/24 13:32 Temperature Pulse Rate 71 65 66 Pulse Rate [Pulse Oximeter] Respiratory Rate 15 16 23 Blood Pressure 176/90 H 158/84 H Blood Pressure [Le ft Arm] Blood Pressure [Ri ght Upper Arm] Pulse Oximetry 100 97 97 Oxygen Delivery Me thod 12/22/24 13:33 12/22/24 13:45 12/22/24 14:00 Temperature Pulse Rate 66 64 61 Pulse Rate [Pulse Oximeter] Respiratory Rate 21 24 11 L Blood Pressure Blood Pressure [Le ft Arm] Blood Pressure [Ri ght Upper Arm] Pulse Oximetry 99 98 96 Oxygen Delivery Me thod 12/22/24 14:02 12/22/24 14:21 12/22/24 14:30 Temperature Pulse Rate 61 61 Pulse Rate [Pulse Oximeter] Respiratory Rate 13 42 H 18 Blood Pressure 149/82 H Blood Pressure [Le ft Arm] Blood Pressure [Ri ght Upper Arm] Pulse Oximetry 97 98 Oxygen Delivery Me thod Room Air 12/22/24 14:35 12/22/24 14:36 12/22/24 14:43 Temperature Pulse Rate 62 61 57 L Pulse Rate [Pulse Oximeter] Respiratory Rate 16 15 12 Blood Pressure 154/92 H Blood Pressure [Le ft Arm] Blood Pressure [Ri ght Upper Arm] Pulse Oximetry 98 98 99 Oxygen Delivery Me thod 12/22/24 14:45 12/22/24 15:00 12/22/24 15:02 Temperature Pulse Rate 60 64 64 Pulse Rate [Pulse Oximeter] Respiratory Rate 13 12 14 Blood Pressure 166/88 H Blood Pressure [Le ft Arm] Blood Pressure [Ri ght Upper Arm] Pulse Oximetry 99 99 99 Oxygen Delivery Me thod Room Air 12/22/24 15:15 12/22/24 15:30 12/22/24 15:32 Temperature Pulse Rate 61 64 62 Pulse Rate [Pulse Oximeter] Respiratory Rate 17 14 12 Blood Pressure 181/102 H Blood Pressure [Le ft Arm] Blood Pressure [Ri ght Upper Arm] Pulse Oximetry 98 99 100 Oxygen Delivery Me thod 12/22/24 17:09 12/22/24 17:09 Temperature 98.0 F Pulse Rate Pulse Rate [Pulse Oximeter] Respiratory Rate 14 14 Blood Pressure Blood Pressure [Le ft Arm] 182/91 H Blood Pressure [Ri ght Upper Arm] Pulse Oximetry 98 98 Oxygen Delivery Me thod Room Air Room Air Hospitalist - H&P: Result Labs Labs: Short CBC 12/22/24 Range/Units 12:55 WBC 4.52 (4.50-11.00) K/uL Hgb 13.3 (12.0-16.0) gm/dL Hct 40.1 (33.0-51.0) % Plt Count 239 (140-440) K/uL BMP 12/22/24 12:55 Sodium 137 Potassium 3.8 Chloride 102 Carbon Dioxide 26 BUN 20 Creatinine 0.8 Glucose 86 Calcium 9.6 Cardiac Enzymes 12/22/24 Range/Units 12:55 Troponin I < 0.01 (0.01-0.04) ng/mL Liver Function 12/22/24 Range/Units 12:55 Total Bilirubin 0.4 (0.1-1.5) mg/dL AST 24 (12-35) U/L ALT 16 (4-35) U/L Alkaline Phosphatase 51 (40-150) U/L Albumin 4.3 (3.3-5.0) g/dL Urine 12/22/24 Range/Units 14:32 Urine Color Yellow (Yellow) Urine Appearance Clear (Clear) Urine pH 7.0 (5.0-8.5) Ur Specific [place] 1.010 (1.000-1.030) Urine Protein Negative (Negative) Urine Glucose (UA) Negative (Negative) Imaging CT scan - head: Attestation: I have reviewed the pertinent imaging results. Radiologist's impression: No acute intracranial findings. Age-related parenchymal volume loss and white matter hypodensities typically seen with chronic small vessel disease. CT angiogram of head and neck: Radiologist's impression: No significant stenosis of head or neck vessels noted on preliminary reading.
[2024-12-22] MEDS: ROSUVASTATIN CALCIUM 10 MG TABLET 20 MG PO (20:56)
[2024-12-22] MEDS: SODIUM CHLORIDE 0.9 % (FLUSH) 10 ML SYRINGE 5 ML IVF ×2 (20:57→22:51)
[2024-12-22] MEDS: buPROPion HCL 100 MG TAB.SR.12H PO (20:57)
[2024-12-22] MEDS: LATANOPROST 0.005% OPHTH 1 DROP EYE-BOTH (21:16)
[2024-12-22] MEDS: DORZOLAMIDE/TIMOLOL 2-0.5% OPHTH 1 DROP EYE-BOTH (21:16)
[2024-12-22] MEDS: VALSARTAN 80 MG TABLET 160 MG PO (22:51)
[2024-12-23] VITALS (11 sets, daily range): BP systolic 124–166; BP diastolic 82–97; PULSE 62–80; RESP 16–20; TEMP 36.5–36.9; O2SAT 95–98
[2024-12-23] MEDS: LEVOTHYROXINE 112 MCG TABLET PO (06:20)
[2024-12-23 06:50] LABS: Hematocrit 39.9 % (33.0-51.0); Hemoglobin* 13.1 gm/dL (12.0-16.0); Mean Corpuscular HGB Conc 33 gm/dL (32-36); Mean Corpuscular Hemoglobin 31 pg (26-34); Mean Corpuscular Volume 94 fL (80-100); Platelet Count* 236 K/uL (140-440); Red Blood Count 4.23 m/uL (4.00-5.20); White Blood Count* 3.84 K/uL (4.50-11.00)
[2024-12-23 06:53] LABS: Slide Review Reflex No
[2024-12-23 07:03] LABS: Chloride* 103 mmol/L (96-114); Potassium* 4.3 mmol/L (3.6-5.1); Sodium* 137 mmol/L (135-149)
[2024-12-23 07:06] LABS: Anion Gap 6 mEq/L (7-15); Blood Urea Nitrogen* 19 mg/dL (7-30); Carbon Dioxide* 28 mmol/L (20-32); Cholesterol* 206 mg/dL (90-199); Creatinine* 0.8 mg/dL (0.5-1.5); Est. Creatinine Clearance* 50.14; Estimated Glomerular Filt Rate 75 ml/min; Triglycerides* 92 mg/dL (40-149)
[2024-12-23 07:07] LABS: Calcium* 9.4 mg/dL (8.4-10.6); Glucose* 89 mg/dL (60-115); HDL Cholesterol* 59 mg/dL (>=50); LDL Cholesterol Calculated 129 mg/dL (<100); Magnesium* 2.2 mg/dL (1.5-2.6); Phosphorus* 3.8 mg/dL (2.5-4.5)
--- NOTE | 2024-12-23 07:10 | PC.NURSE ---
Pt is alert and oriented x3. Afebrile. Pt denies pain, chest pain, SOB, and N/V. Pt does reports some lightheadness with first orthostatic blood pressures but not with the second set this morning.?when going from lying down to sitting and sitting to standing but reported it was minor. Pt is up SBA with gait belt, voiding, and tolerating a regular diet. ?
[2024-12-23 07:16] LABS: Hemoglobin A1C* 5.6 % (0-5.6)
[2024-12-23 07:56] LABS: Vitamin B12* 366 pg/mL (243-894)
[2024-12-23] MEDS: buPROPion HCL 100 MG TAB.SR.12H PO ×2 (09:32→21:52)
[2024-12-23] MEDS: ASPIRIN 81 MG TAB.CHEW PO (09:32)
[2024-12-23] MEDS: SODIUM CHLORIDE 0.9 % (FLUSH) 10 ML SYRINGE 5 ML IVF ×2 (09:33→21:54)
[2024-12-23] MEDS: DORZOLAMIDE/TIMOLOL 2-0.5% OPHTH 1 DROP EYE-BOTH ×2 (09:33→21:53)
--- NOTE | 2024-12-23 15:12 | P.IMPN_ITS ---
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 Discussion with neurologist by our emergency department physician undertaken with neurologist recommending overnight observation, physical and occupational therapy assessment and recommendations, and obtain an MRI scan of the brain without contrast. Additionally, patient is not ordinarily on aspirin and neurologist has recommended initiation of aspirin 81 mg once daily. Recheck lipid panel in the morning. Rediscussed with neurologist after obtain results of MRI scan. 12/23 - MRI not available. Awaiting MRI scan 12/24. Echocardiogram reassuring. Status: Acute (2) Dizziness: Problem comment: -see notes under entry of ?imbalance Status: Acute Subjective Date Seen: 12/23/24 Interval history: Daily Progress Note - #: 2 CC: 24 HOUR UPDATE: Notable Labs, Micro, Rads, Interventions: 135/86 Pulse 76 Afebrile No respiratory distress. Oxygen saturations are 95% on room air. CBC is reviewed and unremarkable. Chemistries are reviewed and unremarkable. Total cholesterol is 206 with an LDL of 129. TSH is normal. Twelve is normal at 366. UA showed some signs of a cystitis possibly - but urine culture is unremarkable Echo showed some mild to moderate AR however otherwise unremarkable. Head CT No acute intracranial findings. Age-related parenchymal volume loss and white matter hypodensities typically seen with chronic small vessel disease. Objective: Alert, intellectual. Spirited. Vitals: see above Lungs: Clear. Cardiac: S1S2. Neuro: Brief neuro exam is normal. Disposition/Potential discharge - Home 12/24 Today I spent 50minutes seeing the patient, reviewing Expanse and EPIC notes/diagnostics, discussing the care plan with our care time that includes social work, PT/OT, pharmacy, RT, custodial and documenting my impressions and plan in the medical record. Exam Const: Vital Signs, click to edit/add: Vital Signs - 24 hr 12/22/24 15:15 12/22/24 15:30 12/22/24 15:32 Temperature Pulse Rate 61 64 62 Pulse Rate [Pulse Oximeter] Pulse Rate [orthos tatic lying Right Pulse Oximeter] Pulse Rate [orthos tatic sitting Righ t Pulse Oximeter] Pulse Rate [orthos tatic standing Rig ht Pulse Oximeter] Respiratory Rate 17 14 12 Blood Pressure 181/102 H Blood Pressure [Le ft Arm] Blood Pressure [or thostatic lying Le ft Arm] Blood Pressure [or thostatic sitting Left Arm] Blood Pressure [or thostatic standing Left Arm] Pulse Oximetry 98 99 100 Oxygen Delivery Me thod 12/22/24 17:09 12/22/24 17:09 12/22/24 20:55 Temperature 98.0 F Pulse Rate Pulse Rate [Pulse Oximeter] Pulse Rate [orthos tatic lying Right Pulse Oximeter] 69 Pulse Rate [orthos tatic sitting Righ t Pulse Oximeter] 75 Pulse Rate [orthos tatic standing Rig ht Pulse Oximeter] 82 Respiratory Rate 14 14 Blood Pressure Blood Pressure [Le ft Arm] 182/91 H Blood Pressure [or thostatic lying Le ft Arm] 160/97 H Blood Pressure [or thostatic sitting Left Arm] 168/96 H Blood Pressure [or thostatic standing Left Arm] 160/104 H Pulse Oximetry 98 98 Oxygen Delivery Me thod Room Air Room Air 12/22/24 21:00 12/22/24 23:00 12/22/24 23:00 Temperature 98.1 F Pulse Rate 60 Pulse Rate [Pulse Oximeter] 69 Pulse Rate [orthos tatic lying Right Pulse Oximeter] Pulse Rate [orthos tatic sitting Righ t Pulse Oximeter] Pulse Rate [orthos tatic standing Rig ht Pulse Oximeter] Respiratory Rate 16 16 Blood Pressure Blood Pressure [Le ft Arm] 160/97 H Blood Pressure [or thostatic lying Le ft Arm] Blood Pressure [or thostatic sitting Left Arm] Blood Pressure [or thostatic standing Left Arm] Pulse Oximetry 96 97 Oxygen Delivery Me thod Room Air Room Air 12/22/24 23:00 12/23/24 01:34 12/23/24 06:00 Temperature 97.6 F 97.7 F Pulse Rate Pulse Rate [Pulse Oximeter] 63 69 Pulse Rate [orthos tatic lying Right Pulse Oximeter] 80 Pulse Rate [orthos tatic sitting Righ t Pulse Oximeter] 72 Pulse Rate [orthos tatic standing Rig ht Pulse Oximeter] 62 Respiratory Rate 16 16 Blood Pressure Blood Pressure [Le ft Arm] 147/84 H 166/88 H Blood Pressure [or thostatic lying Le ft Arm] 147/94 H Blood Pressure [or thostatic sitting Left Arm] 161/94 H Blood Pressure [or thostatic standing Left Arm] 151/89 H Pulse Oximetry 97 97 Oxygen Delivery Me thod Room Air Room Air 12/23/24 07:00 12/23/24 07:00 12/23/24 07:00 Temperature 98.1 F Pulse Rate Pulse Rate [Pulse Oximeter] 76 76 Pulse Rate [orthos tatic lying Right Pulse Oximeter] Pulse Rate [orthos tatic sitting Righ t Pulse Oximeter] Pulse Rate [orthos tatic standing Rig ht Pulse Oximeter] Respiratory Rate 16 16 16 Blood Pressure Blood Pressure [Le ft Arm] 135/86 Blood Pressure [or thostatic lying Le ft Arm] Blood Pressure [or thostatic sitting Left Arm] Blood Pressure [or thostatic standing Left Arm] Pulse Oximetry 95 95 Oxygen Delivery Me thod Room Air Room Air 12/23/24 07:00 Temperature Pulse Rate 64 Pulse Rate [Pulse Oximeter] Pulse Rate [orthos tatic lying Right Pulse Oximeter] Pulse Rate [orthos tatic sitting Righ t Pulse Oximeter] Pulse Rate [orthos tatic standing Rig ht Pulse Oximeter] Respiratory Rate Blood Pressure Blood Pressure [Le ft Arm] Blood Pressure [or thostatic lying Le ft Arm] Blood Pressure [or thostatic sitting Left Arm] Blood Pressure [or thostatic standing Left Arm] Pulse Oximetry Oxygen Delivery Me thod Labs Labs: Laboratory Results - last 24 hr 12/23/24 05:47 WBC 3.84 L RBC 4.23 Hgb 13.1 Hct 39.9 MCV 94 MCH 31 MCHC 33 Plt Count 236 Sodium 137 Potassium 4.3 Chloride 103 Carbon Dioxide 28 Anion Gap 6 L BUN 19 Creatinine 0.8 Estimated Creat Clear 50.14 Estimated GFR 75 Glucose 89 Hemoglobin A1c 5.6 Calcium 9.4 Phosphorus 3.8 Magnesium 2.2 Triglycerides 92 Cholesterol 206 H LDL Cholesterol, Calc 129 H HDL Cholesterol 59 Vitamin B12 366 TSH 1.600
--- NOTE | 2024-12-23 19:34 | PC.NURSE ---
End of shift-- Very pleasant and cooperative, alert and oriented patient. VSS and pt is afebrile. SPO2 maintained >90% on RA. She denied any pain. LS CTA. Telemetry shows NSR. Report to SASKIA Mckinley.
[2024-12-23] MEDS: VALSARTAN 80 MG TABLET 160 MG PO (21:52)
[2024-12-23] MEDS: ROSUVASTATIN CALCIUM 10 MG TABLET 20 MG PO (21:52)
[2024-12-23] MEDS: LATANOPROST 0.005% OPHTH 1 DROP EYE-BOTH (21:53)
[2024-12-24 02:27] VITALS: BP 146/86; PULSE 80; RESP 16; TEMP 36.4; O2SAT 97
[2024-12-24] MEDS: LEVOTHYROXINE 112 MCG TABLET PO (06:16)
--- NOTE | 2024-12-24 06:29 | PC.NURSE ---
Pt is alert and oriented x3. Afebrile. Pt denies pain, chest pain, SOB, and N/V. Pt reports ?a little? during night when getting up to use the bathroom. Pt is up SBA with gait belt, voiding, and tolerating a regular diet. ?
[2024-12-24 07:00] VITALS: BP 144/87; PULSE 63; PULSE 75; RESP 16; TEMP 36.6; O2SAT 98
--- NOTE | 2024-12-24 07:00 | CRLHL7_ITS ---
For Patients: As a result of the Century Cures Act, medical imaging exams and procedure reports are released immediately into your electronic medical record. You may view this report before your referring provider. If you have questions, please contact your health care provider. Indication: Dizziness and gait imbalance. Technique: Noncontrast sagittal T1 weighted, axial FLAIR, axial T2 weighted, and axial diffusion weighted sequences are provided. Comparison: CT head 12/22/2024 Findings: Mild parenchymal volume loss. Prominent perivascular spaces. Multiple scattered punctate foci of T2 prolongation in the supratentorial white matter nonspecific. Punctate focus of susceptibility artifact in the left frontal lobe periventricular white matter likely represents remote microhemorrhage. Chronic lacunar infarcts in the bilateral cerebellum. The midline structures are centrally located with no evidence of shift. There are no suspicious intra or extra-axial fluid collections. No region of restricted diffusion. Expected flow voids in the cavernous carotids and basilar artery. Disc osteophyte complex and uncovertebral joint hypertrophy at C3-4 results in moderate spinal canal stenosis and flattening of the ventral cord surface. Bilateral cataract surgery changes. Impression: 1. No acute intracranial abnormalities. 2. 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 Mild parenchymal volume loss and chronic small vessel ischemic changes. 4. Disc osteophyte complex and uncovertebral joint hypertrophy at C3-4 results in moderate spinal canal stenosis and flattening of the ventral cord surface. Dictated by Ritesh Earl MD @ 12/24/2024 5:07:03 PM (Electronically Signed)
[2024-12-24] MEDS: buPROPion HCL 100 MG TAB.SR.12H PO (08:43)
[2024-12-24] MEDS: DORZOLAMIDE/TIMOLOL 2-0.5% OPHTH 1 DROP EYE-BOTH (08:43)
[2024-12-24] MEDS: ASPIRIN 81 MG TAB.CHEW PO (08:43)
[2024-12-24] MEDS: SODIUM CHLORIDE 0.9 % (FLUSH) 10 ML SYRINGE 5 ML IVF (08:44)
[2024-12-24 10:54] VITALS: BP 120/85; PULSE 70; RESP 16; TEMP 36.5; O2SAT 97
[2024-12-24] MEDS: SULFA/TRIMETHOPRIM 800/160 1 TAB PO ×2 (11:02→17:46)
[2024-12-24 14:38] VITALS: BP 127/69; PULSE 66; RESP 16; TEMP 36.4; O2SAT 96
[2024-12-24 15:00] VITALS: PULSE 68; RESP 16; O2SAT 96
--- NOTE | 2024-12-24 18:06 | PC.NURSE ---
Pt discharged @ 1759 via wheelchair, back to home. IV removed. Discharge forms signed. Pt AxOx4, good condition. Questions answered. Pt comfortable with discharge instructions.
--- NOTE | 2024-12-25 12:34 | PM.DS1 ---
DS: Providers Provider Date Seen: 12/25/24 Date of admission: 12/22/24 16:10 Primary care physician: Mackenzie Barajas MD Admitting Clinician: Lianne Briscoe MD Consults: 12/22/24 18:05 Consult to Occupational Therapy [CONS] Routine Comment: Reason(s) for OT Consult:: Evaluate and Treat Any Restrictions?:: No Restrictions Consult to Physical Therapy [CONS] Routine Comment: Reason(s) for PT Consult:: Evaluate and Treat Any Restrictions?:: No Restrictions Attending Physician on discharge: Lianne Briscoe MD Date of Discharge: 12/24/24 DS: Diagnosis Discharge Diagnosis (1) Imbalance: Status: Acute Problem details: -chronic imbalance was suddenly worse the morning of admission. She had visual changes that were described as furniture and items floating or moving. She also felt as if the floor was moving and she had to hold the wall for safety. She did not fall. She did not have a headache. 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 Her MRI was negative for acute stroke. Symptoms had resolved. She was discharged for PCP follow-up. (2) Dizziness: Status: Acute Problem details: -see notes under entry of ?imbalance (3) Situational anxiety: Status: Acute Problem details: -Bupropion started 07/01 (going through move and divorce) -consider possible iatrogenic etiology for patient's new sense of imbalance and dizziness related to bupropion (4) Acute cystitis: Status: Acute Problem details: E coli grown from urine culture at admission. Resistant to Zosyn and cefazolin. Discharged on Bactrim. DS: Summary Hospital Course Hospital Course: FINAL DIAGNOSIS/FOLLOW UP ISSUES: 1. Vague neurological spell: This could have been caused by UTI which we ultimately found untreated. No acute cerebral event was found. She did have some hypertension that was higher than usual that morning so she could been symptomatic from that. 2. UTI. Sensitivities reviewed. Discharged on Bactrim. BRIEF HOSPITAL COURSE: Patient was admitted for 2 days. Synopsis of acute inpatient issues are outlined above. Chronic medical conditions with notable findings outlined above. Her acute symptoms as described in the chart were resolved by the time she reached the floor. But given these new findings, her chronic hypertension and a hypertensive response we felt the risk of an acute ischemic event was likely. There was a delay in getting the MRI but ultimately we were able to achieve this on 12/24. They were negative findings. We discussed her UTI. We treated this. We Center home with close follow-up with her PCP. DISCHARGE MEDICATIONS: See Reconciled list - SIGNIFICANT CHANGES: Short-term Bactrim course. Specific instructions to the patient and follow-up are outlined below. REVIEW OF SYSTEMS No new chest pain or dyspnea Pain controlled No voiding difficulties Tolerating diet challenge PHYSICAL EXAM: CONSTITUTIONAL: Conversive, good historian. A/O. Knows setting and context. GENERAL: Well-developed and above ideal body weight, in no respiratory distress. VITAL SIGNS: see record. HEENT: Sclerae are anicteric. No petechiae. CARDIAC: rhythm is regular. There is no S3 or rub. No harsh murmurs. Extremities show trace edema with symmetrical pulses. PULM: good air entry with no wheeze. NEURO: Speech is fluent. A brief neurologic exam is negative. SKIN: No rashes, petechiae, concerning changes PSYCHIATRIC: Euthymic. DISPOSITION: Home Time spent on discharge 37 minutes. Status at Discharge Functional status at discharge: independent ambulation Overall status at discharge: patient is back to baseline Time Spent with Patient Time attestation: Total time spent providing and/or coordinating discharge services: Time spent: Greater than 30 minutes Exam Const: Vital Signs, click to edit/add: Vital Signs - 24 hr 12/24/24 14:38 12/24/24 15:00 12/24/24 15:00 Temperature 97.5 F L Pulse Rate 68 Pulse Rate [Pulse Oximeter] 66 Respiratory Rate 16 16 Blood Pressure [Ri ght Arm] 127/69 Pulse Oximetry 96 96 Oxygen Delivery Me thod Room Air Room Air Discharge Plan Discharge Disposition: Home, Self-Care Date of Admission: 12/22/24 16:10 Attending Provider on Discharge: Lianne rBiscoe Primary Care Provider: Mackenzie Barajas Condition: Improved Anticipated Discharge Date/Time: 12/24/24 16:27 Discharge Medications: New aspirin [Children's Aspirin] 81 mg Tablet,Chewable 81 mg PO DAILY Qty: 90 0RF sulfamethoxazole-trimethoprim [Bactrim] 400-80 mg tablet 1 tab PO BID Qty: 8 0RF Continued latanoprost 0.005 % drops 1 drp ophthalmic (eye) HS dorzolamide-timolol (PF) 2-0.5 % dropperette 1 drp ophthalmic (eye) BID alendronate 70 mg tablet 70 mg PO QWEEK Qty: 12 3RF bupropion HCl 100 mg tablet sustained-release 12 hr 100 mg PO BID Qty: 180 3RF levothyroxine [Synthroid] 112 mcg tablet 112 mcg PO DAILY Qty: 90 3RF rosuvastatin 20 mg tablet 20 mg PO HS No Action valsartan 160 mg tablet 160 mg PO DAILY Qty: 90 0RF Discharge Orders: Discharge Order (Routine); Ordered 12/24/24 Ordered By: Cody Mclean Patient Education: Sulfamethoxazole/Trimethoprim (By mouth), Aspirin (By mouth) (Wendy Extra Strength, Wendy Aspirin Children's,..., Hypertension (DC) Activity Level: Activity as Tolerated Discharge Diet: Regular Follow Up Appointments: Mackenzie Barajas MD [Primary Care Provider, Internal Medicine] - 01/04/25 3:30 pm Referral Note: [facility] for follow up with PCP Forms: [facility] Info Instructions
== END 2024-12-24 17:59 | disposition home or self-care (01) ==
LOC: ED 12:47 → MEDSURG 16:21
PROVIDERS: Internal Medicine; Admitting Provider Family Medicine; Emergency Provider Family Medicine; PCP Internal Medicine; Visit Provider Family Medicine
DX: N30.00 Acute cystitis without hematuria (principal); A49.8 Other bacterial infections of unspecified site; Z16.19 Resistance to other specified beta lactam antibiotics; R26.89 Other abnormalities of gait and mobility; R42 Dizziness and giddiness; E03.9 Hypothyroidism, unspecified; E78.5 Hyperlipidemia, unspecified; H40.9 Unspecified glaucoma; I10 Essential (primary) hypertension; F41.8 Other specified anxiety disorders; D47.2 Monoclonal gammopathy; M81.0 Age-related osteoporosis without current pathological fracture; Z98.83 Filtering (vitreous) bleb after glaucoma surgery status; Z87.19 Personal history of other diseases of the digestive system; Z86.39 Personal history of other endocrine, nutritional and metabolic disease
CPT/HCPCS: 36415; 70450; 70496; 70498; 70551; 80048; 80053; 80061; 81001; 82607; 83036; 83605; 83735; 83880; 84100; 84443; 84484; 85025; 85027; 85651; 86140; 87086; 93005; 93306; 94761; 97161; 97165; 97530; 97535; 99284; 99285; A9270; G0378; Q9967

== ENCOUNTER 2025-02-13 13:00 | Outpatient (RCR) | payer MEDICARE, SELFPAY ==
--- NOTE | 2024-10-15 10:35 | PT.OPEX ---
[facility] [place] [facility] PT [facility] Outpatient Eval Start: 10/15/24 07:52 Freq: Status: Active Protocol: Document 10/15/24 10:33 ENM (Rec: 10/15/24 10:34 ENM [id number]) E-signed By Bridget Brooke, DPT Physical Therapy Outpatient Evaluation Insurance Information Recert Due Date 01/13/25 Insurance Name Medicare B Medical Diagnosis other abnormalities of gait and mobility Treating Diagnosis muscle weakness, deconditioning, impaired balance, impaired gait, impaired posture Referring MD Barajas Subjective Preferred Name Heather Aleman Patient presents to PT for complaint of feeling off balance and it is not getting any better. Has not been able to do her somatic exercises lately and feeling like she is worsening. She doesn't feel stable. Feels like the wind could blow her over. This has been going on for years. Feels like she has been sitting a lot this winter since she was mainly knitting or reading. Is trying to walk more and swim in the aerobics classes. Took a 6 week tap class and noticed that her feet did not want to corn picker. Has walking sticks but doesn't use them much. Walking on uneven ground is challenging. Going up curbs she really has to pay attention. PMHx: HTN, osteoporosis, R eye doesn't see very well, glaucoma, R knee periodically hurts When it started: years ago Current Work Status Retired Objective Other/Pertinent Objective Strength: 5x STS 18.41s with use of arms 30STS 8 reps with use of arms, wide ALEX, moderate push from arms hip flexors L 3+/5 R 4-/5 knee extensors L 4/5 R 4-/5 ankle DF L 4-/5 R 4/5 gait/balance: FGA 1. 1 2. 2 3. 2 4. 2 5. 2 6. 1 7. 0 8. 1 9. 1 10. 2 normal ALEX EO no instability normal ALEX EC no instability on foam normal ALEX EO minimal instability on foam normal ALEX EC mild instability with posterior sway Other: Posture in standing- Patient rests with knee valgus, knee cap is laterally shifted, sway back Gait: Patient ambulates with wide ALEX, slow pace, decreased step length and foot clearance Assessment Assessment/Impression Patient is a 79 year old female presenting with chronic balance impairments. They have noticed difficulties with walking on uneven surfaces, stepping up curbs and activities that challenge single leg balance like tap dancing. They deny having any falls in the last couple of months. PMHx is significant for HTN, osteoporosis, right knee pain and glaucoma. Upon assessment patient displays decreased LE functional strength and endurance with 30sSTS testing. They display static instability with eyes closed on foam with intermittent posterior sway. They scored a 14/30 on the FGA placing them in the falls risk category. They are most challenged with stepping over obstacles, narrow ALEX walks and backwards walking. Sarah would greatly benefit from skilled PT to address impairments stated above in order to perform all household duties and recreational activities with improved balance/stability and decrease risk for future falls. Primary Functional Limitations walking on uneven ground, curbs, tap dancing Plan of Care Rehabilitation Potential Good Physical Therapy Goals In 8-10 visits: 1. Patient will be IND with HEP and self management of symptoms 2. Patient will improve FGA score from 14 to 18 (MDC 4) to demonstrate improvements in balance/stability 3. Patient will improve 5x STS from 18.41s to 14.41 (MDC 4s) to demonstrate improvement in LE functional strength 4. Patient will step on/off curbs with self reported improved confidence for improved community navigation Coordination/Communication With Referral Source Treatment Plan/Direct Interventions Gait Training,Heat,Ice/Cold/ Vasopneumatic,Joint Mobilization,Manual Therapy, Neuromuscular Re-ed,Self-Care/ Home Management,Therapeutic Activities,Therapeutic Exercises Frequency/Duration 1x a week for 8-10 weeks Patient Will Be Discharged From Therapy Completion of LTG(s), Independent w/HEP Evaluation Billing Untimed Code Treatment Minutes 45 Complexity Low Certification Information Initial Certification Date 10/15/24 Ending Certification Date 01/13/25 Provider Signature Required Yes Provider Signature Shows Agreement With POC & Medical Necessity Physician NPI Number Write NPI# Here Physician Comment/Change : Physician Signature & Date Requested Please Sign/Date Here
== END 2025-04-08 09:42 | disposition home or self-care (01) ==
PROVIDERS: PCP Internal Medicine; Visit Provider Internal Medicine
DX: R26.89 Other abnormalities of gait and mobility (principal); Z51.89 Encounter for other specified aftercare
CPT/HCPCS: 97110; 97112; 97161; 97530

== ENCOUNTER 2025-04-16 09:40 | Outpatient (CLI) | payer MEDICARE, SELFPAY | END 2025-04-16 09:41 | disposition home or self-care (01) | LOC: NFLDREF 04-18 17:14 | PROVIDERS: PCP Internal Medicine; Referring Provider Internal Medicine; Visit Provider Physician Assistant | DX: N39.0 Urinary tract infection, site not specified (principal) | CPT/HCPCS: 87086 ==

== ENCOUNTER 2025-05-15 12:39 | Outpatient (CLI) | payer MEDICARE, SELFPAY ==
--- NOTE | 2025-05-15 13:00 | CRLHL7_ITS ---
For Patients: As a result of the Century Cures Act, medical imaging exams and procedure reports are released immediately into your electronic medical record. You may view this report before your referring provider. If you have questions, please contact your health care provider. XR DXA BONE MINERAL DENSITY (BMD) Current height (in): 69.0. Weight (lb): 170.0. Menopause age: 56. Ethnicity: White. Reason for exam: Age-related osteoporosis without current pathology. 1. Have you had a previous hip or vertebral fracture? No. 2. Have you had any fractures during your adult life which did not result from significant trauma (e.g., auto accident)? No. 3. Did either of your parents have a hip fracture? No. 4. Do you smoke? No. 5. Have you ever taken Glucocorticoids? No. 6. Do you have rheumatoid arthritis? No. 7. Do you have secondary osteoporosis? No. 8. Do you drink 3 or more alcoholic drinks per day? No. 9. Are you being treated for osteoporosis? Yes. 10. Have you ever taken any of the following medications: Actonel, Evista, Fosamax, Miacalcin, Reclast, Boniva, Forteo, HRT (i.e. estrogen/hormone therapy), Protelos, Prolia, Vitamin D, Calcium, other ??? please specify. ANSWER: Yes, vitamin D. 11. Do you have any of the following medical conditions: Anorexia or bulimia, asthma or emphysema, end stage renal disease, hyperparathyroidism, any seizure disorders, cancer, inflammatory bowel diseases, hysterectomy, other ??? please specify. ANSWER: No. 12. What was your maximum height (inches)? 71. 13. Do you perform weight bearing exercise regularly? Yes. 14. Do you regularly consume dairy products? Yes. 15. Do you drink caffeinated beverages? Yes. 16. At what age did your period start? 14. 17. Are you premenopausal? No. 18. How many full-term pregnancies have you had? 1. 19. Have you ever missed your period for more than 6 months in a row (not including or menopause)? No. TECHNIQUE: Bone mineral density study was performed using the [employer]. FINDINGS: The results of the study expressed as bone mineral density (BMD) are as follows: Lumbar spine L2 to L3: BMD: 0.917 g/cm2. T-score: -1.3. Z-score: 1.4 Neck Left: BMD: 0.656 g/cm2. T-score: -1.7. Z-score: 0.5 Right: BMD: 0.649 g/cm2. T-score: -1.8. Z-score: 0.4 Total Left: BMD: 0.721 g/cm2. T-score: -1.8. Z-score: 0.2 Right: BMD: 0.735 g/cm2. T-score: -1.7. Z-score: 0.3 IMPRESSION: Osteopenia. Ritesh Pollard M.D. Diagnostic Radiologist [email or web address] Transcribed: 9:23 am DW/Dictated by: Ritesh Pollard MD @ 05/16/2025 8:06:00 AM (Electronically Signed)
== END 2025-05-15 12:40 | disposition home or self-care (01) ==
LOC: RAD 12:40
PROVIDERS: PCP Internal Medicine; Visit Provider Internal Medicine
DX: M81.0 Age-related osteoporosis without current pathological fracture (principal); M85.89 Other specified disorders of bone density and structure, multiple sites
CPT/HCPCS: 77080